=== PATIENT | female | born 1960 | race Caucasian/White ===

== ENCOUNTER 2022-05-18 13:32 | Observation (INO) | payer OTHER ==
--- OUTSIDE RECORDS SUMMARY | 2022-05-18 13:37 | XMS REPORT | Continuity of Care Document ---
:1960 Author Organization [facility] t Address [address] [place] [address] Care Team Providers Name Role Phone Chiqui Pandya DO Primary Care Physician ABIGAIL KUHN Attending Clinician Unavailable JOSE LUIS BRENNER Attending Clinician Unavailable SHARI CONN Attending Clinician Unavailable [id number] Attending Clinician Unavailable [id number] Attending Clinician Unavailable [id number] Attending Clinician Unavailable JOVITA DEMPSEY Attending Clinician Unavailable Ruby [employer]-CShari Attending Clinician CHIQUI PANDYA Attending Clinician Unavailable RACHEL FERRO Attending Clinician Unavailable Rachel Ferro MD Attending Clinician Abigail Kuhn MD Attending Clinician JESSICA ASHTON Attending Clinician Unavailable MICHELLE HORTON Attending Clinician Unavailable [id number] Attending Clinician Unavailable Destini Avendano RD Attending Clinician MODESTO ARDON Attending Clinician Unavailable [id number] Attending Clinician Unavailable Modesto Ardon MD Attending Clinician [facility] Attending Clinician Unavailable Payers Payer Name Policy Type Policy Number Effective Date Expiration Date Stephany noe [facility] 2 [id number] 2019 00:00:00 Problems Condition Condition Condition Status Onset Resolution Last Treating Co mments Source Name Details Category Date Date Treatment Clinician Date DVT of DVT of Disease Active Betsey deep deep 9-15 Seybold femoral femoral 00:00: - vein, vein, 00 Externa right right l Family Family Disease Active Betsey history of history of 01-24 Se ybold melanoma melanoma 00:00: - 00 Externa l Hx of Hx of Disease Active Betsey basal cell basal cell 8 Se ybold carcinoma carcinoma 00:00: - - - 00 Externa Controlled Controlled l Basal cell Basal cell Disease Active Overview : Betsey carcinoma carcinoma 11-09 Formattin S eybold (BCC) of (BCC) of 00:00: g of this - skin of skin of 00 note Externa left lower left lower might be l extremity extremity different including including from the hip hip original. Treated with Excision in office Essential Essential Disease Active 2020-06 Jose Maria y hypertensi hypertensi 2-14 Se ybold on on 00:00: - 00 Externa l Gastroesop Gastroesop Disease Active 2020-06 K elsey hageal hageal 2-14 Seybold reflux reflux 00:00: - disease disease 00 Externa l MOUSTAPHA MOUSTAPHA Disease Active Betsey (obstructi (obstructi 9-17 Se ybold ve sleep ve sleep 00:00: - apnea) apnea) 00 Externa l Allergies, Adverse Reactions, Alerts Allergy Allergy Status Severity Reaction(s) Onset Inactive Treating Comm ents Source Name Type Date Date Clinician Pistachi Propensi Active Swelling Vianey ey o Nut ty to 9-27 Seybold (Diagnos adverse 00:00: - tic) reaction 00 Externa s l Codeine Propensi Active Anaphylaxis 2006-06 Ke lsey ty to 0-24 Seybold adverse 00:00: - reaction 00 Externa s l Social History Social Habit Start Date Stop Date Quantity Comments Source History SDOH Betsey Rodriguez ld - Alcohol Frequency Externa l History SDOH Betsey Rodriguez ld - Alcohol Std Drinks Food And Beverage Director al History SDOH Betsey Rodriguez ld - Alcohol Comment External Alcohol intake 2022-05-172022-05-17 1.14 /d Betsey Rasmussen bold - 00:00:00 00:00:00 External History SDOH 2018-04-29 2018-04-29 4 Betsey Rodriguez ld - Alcohol Binge 00:00:00 00:00:00 External Tobacco use and 2018-02-12 2018-02-12 Smokeless tobacco Ke sweta Doranybold - exposure 00:00:00 00:00:00 non-user External History of tobacco 2011-10-05 Cigarette Smoker Betsey Lima - use 00:00:00 External Sex [birth year] F Betsey shoemaker - 00:00:00 00:00:00 External Smoking Status Start Date Stop Date Source Ex-smoker 2018-02-12 00:00:00 2018-02-12 00:00:00 Betseysami jaydanielle - External Medications Ordered Filled Start Stop Current Ordering Indication Dosage Frequency Signature Comments Components Source Medication Medication Date Date Medication? Clinician (SIG) Name Name Cholecalcif 2021-06 Yes 2000U Take 2,000 Betsey dawna 1-30 units by Seybold (Vitamin 14:19: mouth - D3) 50 MCG 01 daily Externa (1999) l oral Cap Eliquis 5 2021-06 Yes [id number] TAKE 1 Betsey MG oral 1-29 9101 TABLET BY Seybold Tablet 00:00: MOUTH - 00 TWICE A Externa DAY l Atorvastati 2021-06 Yes [id number] 10mg Take 1 Betsey n Calcium 1-25 tablet (10 Seyb old 10 MG oral 00:00: mg total) - Tablet 00 by mouth Externa nightly l Nitrofurant 2021-06 Yes [id number] 100mg Take 1 Betsey oin Monohyd 1-25 capsule Seybo ld Macro 00:00: (100 mg - (Macrobid) 00 total) by Exte rna 100 MG oral mouth 2 l Capsule times daily Fluconazole 2021-06 Yes 150mg Take 150 K elsey 150 MG oral 1-25 mg by Seybold Tablet 00:00: mouth once - 00 FOR 1 DOSE Externa l Cholecalcif 2021-06 Yes 2000U Take 2,000 Betsey dawna 1-22 units by Seybold (Vitamin 08:27: mouth - D3) 50 MCG 13 daily Externa (1999) l oral Cap Ciclopirox 2021-06 Yes [id number] Apply to Betsey Olamine - the toe Seybold 0.77 % 00:00: nails - apply 00 twice a Externa externally day for 12 l Suspension weeks Triamcinolo 2021-06 Yes [id number] Apply to Betsey ne - the right Seybold Acetonide 00:00: ankle - 0.1 % apply 00 twice a Exter na externally day for 14 l Cream days Ciclopirox 2021-06 Yes [id number] Apply to Betsey Olamine - the toe Seybold 0.77 % 00:00: nails - apply 00 twice a Externa externally day for 12 l Suspension weeks Triamcinolo 2021-06 Yes [id number] Apply to Betsey ne - the right Seybold Acetonide 00:00: ankle - 0.1 % apply 00 twice a Exter na externally day for 14 l Cream days CELESTONE 2021-06- No [id number] 6mg Jose Maria sey -15 -15 Seybold 16:00: 16:05 - 00 :00 Externa l Triamcinolo 2021-06- No [id number] 40mg K hakan ne 1-15 11-15 Seybold Acetonide 16:00: 16:00 - (KENALOG) 00 :00 Externa 40 mg/mL l Triamcinolo 2021-06- No [id number] 1mL 40 mg (1 Betsey ne - 11-15 mL), Seybold Acetonide 16:00: 16:00 intramuscu - (KENALOG) 00 :00 lar, ONCE, Exte rna 40 mg/mL On Tue l 05/02/22 at 1000, For 1 dose CELESTONE 2021-06- No [id number] 6mg 6 mg, Ke lsey -15 11-15 intramuscu Seybold 16:00: 16:05 lar, ONCE, - 00 :00 On Tue Externa 05/02/22 l at 1000, For 1 dose Cholecalcif 2021-06 Yes Take 2,000 Betsey dawna 1-15 units by Janie (Vitamin 09:25: mouth - D3) 50 MCG 58 daily Externa (1999) l oral Cap OZEMPIC (2021-06 Yes [id number] 1mg Inject 1 Betsey mg/dose) 4 1-15 mg into Seybol d mg/3 mL SQ 00:00: the skin - Solution 00 once a Externa Pen-Injecto week l r guaiFENesin 2021-06 Yes [id number] 5mL Q.[id number] Take 5 mL Betsey -Codeine 1-15 [id number] by mouth 3 Seybold 100-10 00:00: 3D times - MG/5ML oral 00 daily as Exte rna Solution needed for l cough OZEMPIC (2021-06 Yes [id number] 1mg Inject 1 Betsey mg/dose) 4 1-15 mg into Seybol d mg/3 mL SQ 00:00: the skin - Solution 00 once a Externa Pen-Injecto week l r guaiFENesin 2021-06 Yes [id number] 5mL Q.[id number] Take 5 mL Betsey -Codeine 1-15 [id number] by mouth 3 Seybold 100-10 00:00: 3D times - MG/5ML oral 00 daily as Exte rna Solution needed for l cough OZEMPIC (2021-06 Yes [id number] 1mg Inject 1 Betsey mg/dose) 4 1-15 mg into Seybol d mg/3 mL SQ 00:00: the skin - Solution 00 once a Externa Pen-Injecto week l r guaiFENesin 2021-06 Yes [id number] 5mL Q.[id number] Take 5 mL Betsey -Codeine 1-15 [id number] by mouth 3 Seybold 100-10 00:00: 3D times - MG/5ML oral 00 daily as Exte rna Solution needed for l cough Cholecalcif 2021-06 Yes Take 2,000 Betsey dawna 0-28 units by Seybold (Vitamin 12:53: mouth - D3) 50 MCG 58 daily Externa (1999) l oral Cap methylPREDN 2021-06 Yes [id number] 1{vaughn} Take 1 vaughn Betsey ISolone 4 0-28 by mouth Seybol d MG oral 00:00: See Admin - Tablet 00 Instructio Externa Therapy ns Use as l Pack directed Benzonatate 2021-06 Yes [id number] 100mg Q.[id number] Take 1 Betsey (Tessalon 0-28 [id number] capsule S eybold Perles) 100 00:00: 3D (100 mg - MG oral 00 total) by Externa Capsule mouth 3 l times daily as needed for cough Pseudoeph-B 2021-06 Yes [id number] 10mL Q.25D Take 10 mL Betsey romphen-DM 0-28 by mouth 4 Sey bold (Bromfed 00:00: times - DM) daily as Exte rna MG/5ML oral needed l Syrup Benzonatate 2021-06 Yes [id number] 100mg Q.[id number] Take 1 Betsey (Tessalon 0-28 [id number] capsule S eybold Perles) 100 00:00: 3D (100 mg - MG oral 00 total) by Externa Capsule mouth 3 l times daily as needed for cough Pseudoeph-B 2021-06 Yes [id number] 10mL Q.25D Take 10 mL Betsey romphen-DM 0-28 by mouth 4 Sey bold (Bromfed 00:00: times - DM) daily as Exte rna MG/5ML oral needed l Syrup Benzonatate 2021-06 Yes [id number] 100mg Q.[id number] Take 1 Betsey (Tessalon 0-28 [id number] capsule S eybold Perles) 100 00:00: 3D (100 mg - MG oral 00 total) by Externa Capsule mouth 3 l times daily as needed for cough Pseudoeph-B 2021-06 Yes [id number] 10mL Q.25D Take 10 mL Betsey romphen-DM 0-28 by mouth 4 Sey bold (Bromfed 00:00: times - DM) daily as Exte rna MG/5ML oral needed l Syrup Pseudoeph-B 2021-06 Yes [id number] 10mL Q.25D Take 10 mL Betsey romphen-DM 0-28 by mouth 4 Sey bold (Bromfed 00:00: times - DM) daily as Exte rna MG/5ML oral needed l Syrup Benzonatate 2021-06 [id number] 100mg Q.[id number] Take 1 Betsey (Tessalon 0-28 11-30 [id number] capsule Seybold Perles) 100 00:00: 00:00 3D (100 mg - MG oral 00 :00 total) by Externa Capsule mouth 3 l times daily as needed for cough methylPREDN 2021-06- No [id number] 1{vaughn} Take 1 vaughn Betsey ISolone 4 0-28 11-15 by mouth Seybo ld MG oral 00:00: 00:00 See Admin - Tablet 00 :00 Instructio Externa Therapy ns Use as l Pack directed Azithromyci 2021-06- Yes [id number] Take 2 Betsey n 250 MG 0-28 11-03 tablets by Seyb old oral Tablet 00:00: 04:59 mouth on - 00 :00 day 1 then Externa 1 tablet l by mouth daily for 4 days thereafter . OZEMPIC 2021-06 Yes [id number] .5mg INJECT 0.5 Betsey (0.25 or 0-11 MG INTO Seybold 0.5 00:00: THE SKIN - mg/dose) 2 00 ONCE A Externa mg/1.5 mL WEEK l SQ Solution Pen-Injecto r OZEMPIC 2021-06- No [id number] .5mg INJECT 0.5 Betsey (0.25 or 0-11 11-15 MG INTO Seybold 0.5 00:00: 00:00 THE SKIN - mg/dose) 2 00 :00 ONCE A Externa mg/1.5 mL WEEK l SQ Solution Pen-Injecto r Furosemide 2021-06 Yes [id number] 40mg TAKE 1 Betsey 40 MG oral 0-10 TABLET (40 Sey bold Tablet 00:00: MG TOTAL) - 00 BY MOUTH Externa IN THE l MORNING AND 1 TABLET (40 MG TOTAL) IN THE EVENING. Montelukast 2021-06 Yes [id number] TAKE 1 Betesy (SINGULAIR) 0-10 TABLET BY Sey bold 10 MG oral 00:00: MOUTH - Tablet 00 EVERY DAY Externa tablet AT NIGHT l Furosemide 2021-06 Yes [id number] 40mg TAKE 1 Betsey 40 MG oral 0-10 TABLET (40 Sey bold Tablet 00:00: MG TOTAL) - 00 BY MOUTH Externa IN THE l MORNING AND 1 TABLET (40 MG TOTAL) IN THE EVENING. Montelukast 2021-06 Yes [id number] TAKE 1 Betsey (SINGULAIR) 0-10 TABLET BY Sey bold 10 MG oral 00:00: MOUTH - Tablet 00 EVERY DAY Externa tablet AT NIGHT l Furosemide 2021-06 Yes [id number] 40mg TAKE 1 Betsey 40 MG oral 0-10 TABLET (40 Sey bold Tablet 00:00: MG TOTAL) - 00 BY MOUTH Externa IN THE l MORNING AND 1 TABLET (40 MG TOTAL) IN THE EVENING. Montelukast 2021-06 Yes [id number] TAKE 1 Betsey (SINGULAIR) 0-10 TABLET BY Sey bold 10 MG oral 00:00: MOUTH - Tablet 00 EVERY DAY Externa tablet AT NIGHT l Furosemide 2021-06 Yes [id number] 40mg TAKE 1 Betsey 40 MG oral 0-10 TABLET (40 Sey bold Tablet 00:00: MG TOTAL) - 00 BY MOUTH Externa IN THE l MORNING AND 1 TABLET (40 MG TOTAL) IN THE EVENING. Montelukast 2021-06 Yes [id number] TAKE 1 Betsey (SINGULAIR) 0-10 TABLET BY Sey bold 10 MG oral 00:00: MOUTH - Tablet 00 EVERY DAY Externa tablet AT NIGHT l Cholecalcif Yes 1999U Take 2,000 Betsey dawna 9-27 units by Seybold (Vitamin 11:02: mouth - D3) 50 MCG 22 daily Externa (1999) l oral Cap Cyclobenzap Yes [id number] 5mg Q.[id number] Take 1 Betsey rine HCl 5 9-27 [id number] tablet (5 Seybold MG oral 00:00: 3D mg total) - Tablet 00 by mouth 3 Externa times l daily as needed for muscle spasms Cyclobenzap Yes [id number] 5mg Q.[id number] Take 1 Betsey rine HCl 5 9-27 [id number] tablet (5 Seybold MG oral 00:00: 3D mg total) - Tablet 00 by mouth 3 Externa times l daily as needed for muscle spasms Cyclobenzap Yes [id number] 5mg Q.[id number] Take 1 Betsey rine HCl 5 9-27 [id number] tablet (5 Seybold MG oral 00:00: 3D mg total) - Tablet 00 by mouth 3 Externa times l daily as needed for muscle spasms Cyclobenzap Yes [id number] 5mg Q.[id number] Take 1 Betsey rine HCl 5 03-14 [id number] tablet (5 Seybold MG oral 00:00: 3D mg total) - Tablet 00 by mouth 3 Externa times l daily as needed for muscle spasms Cyclobenzap Yes [id number] 5mg Q.[id number] Take 1 Betsey rine HCl 5 03-14 [id number] tablet (5 Seybold MG oral 00:00: 3D mg total) - Tablet 00 by mouth 3 Externa times l daily as needed for muscle spasms Metformin Yes [id number] TAKE 1 K elsey HCl 500 MG 9-26 TABLET BY Seyb old oral Tablet 00:00: MOUTH IN - 00 THE Externa MORNING l AND 1 TABLET IN THE EVENING. TAKE WITH MEALS. Metformin Yes [id number] TAKE 1 K elsey HCl 500 MG 9-26 TABLET BY Seyb old oral Tablet 00:00: MOUTH IN - 00 THE Externa MORNING l AND 1 TABLET IN THE EVENING. TAKE WITH MEALS. Metformin Yes [id number] TAKE 1 K elsey HCl 500 MG 9-26 TABLET BY Seyb old oral Tablet 00:00: MOUTH IN - 00 THE Externa MORNING l AND 1 TABLET IN THE EVENING. TAKE WITH MEALS. Metformin Yes [id number] TAKE 1 K elsey HCl 500 MG 9-26 TABLET BY Seyb old oral Tablet 00:00: MOUTH IN - 00 THE Externa MORNING l AND 1 TABLET IN THE EVENING. TAKE WITH MEALS. Metformin Yes [id number] TAKE 1 K elsey HCl 500 MG 9-26 TABLET BY Seyb old oral Tablet 00:00: MOUTH IN - 00 THE Externa MORNING l AND 1 TABLET IN THE EVENING. TAKE WITH MEALS. OZEMPIC Yes [id number] .25mg Inject Ke lsey (0.25 or 9-09 0.25 mg Seybold 0.5 00:00: into the - mg/dose) 2 00 skin once Exte rna mg/1.5 mL a week l SQ Solution Pen-Injecto r Apixaban 5 Yes [id number] 5mg Take 1 Betsey MG oral 8-26 9101 tablet (5 Seybold Tablet 00:00: mg total) - 00 by mouth 2 Externa times l daily Apixaban 5 2021-0 Yes [id number] 5mg Take 1 Betsey MG oral 8-26 9101 tablet (5 Seybold Tablet 00:00: mg total) - 00 by mouth 2 Externa times l daily Apixaban 5 2021-0 Yes [id number] 5mg Take 1 Betsey MG oral 8-26 9101 tablet (5 Seybold Tablet 00:00: mg total) - 00 by mouth 2 Externa times l daily Apixaban 5 2021-0 Yes [id number] 5mg Take 1 Betsey MG oral 8-26 9101 tablet (5 Seybold Tablet 00:00: mg total) - 00 by mouth 2 Externa times l daily Ketoconazol 2021-0 Yes [id number] Apply K elsey e 2 % apply - under Seybold externally 00:00: breast - Cream 00 twice a Externa day l Miconazole 2021-0 Yes [id number] Apply to Betsey Nitrate - under Seybold (Zeasorb-AF 00:00: breast - ) 2 % apply 00 daily Externa externally l Powder Ketoconazol 2021-0 Yes [id number] Apply K elsey e 2 % apply - under Seybold externally 00:00: breast - Cream 00 twice a Externa day l Miconazole 2021-0 Yes [id number] Apply to Betsey Nitrate - under Seybold (Zeasorb-AF 00:00: breast - ) 2 % apply 00 daily Externa externally l Powder Ketoconazol 2021-0 Yes [id number] Apply K elsey e 2 % apply - under Seybold externally 00:00: breast - Cream 00 twice a Externa day l Miconazole 2-0 Yes [id number] Apply to Betsey Nitrate - under Seybold (Zeasorb-AF 00:00: breast - ) 2 % apply 00 daily Externa externally l Powder Ketoconazol 2021-0 Yes [id number] Apply K elsey e 2 % apply - under Seybold externally 00:00: breast - Cream 00 twice a Externa day l Miconazole 2021-0 Yes [id number] Apply to Betsey Nitrate 01-24 under Seybold (Zeasorb-AF 00:00: breast - ) 2 % apply 00 daily Externa externally l Powder Ketoconazol Yes [id number] Apply K elsey e 2 % apply 01-24 under Seybold externally 00:00: breast - Cream 00 twice a Externa day l Miconazole Yes [id number] Apply to Betsey Nitrate 01-24 under Seybold (Zeasorb-AF 00:00: breast - ) 2 % apply 00 daily Externa externally l Powder Furosemide Yes [id number] 40mg TAKE 1 Betsey 40 MG oral 7-12 TABLET (40 Sey bold Tablet 00:00: MG TOTAL) - 00 BY MOUTH Externa IN THE l MORNING AND 1 TABLET (40 MG TOTAL) IN THE EVENING. Montelukast 0 Yes [id number] TAKE 1 Betsey (SINGULAIR) 7-12 TABLET BY Sey bold 10 MG oral 00:00: MOUTH - Tablet 00 EVERY DAY Externa tablet AT NIGHT l Lisinopril 2021-0 Yes [id number] TAKE 1 K elsey 40 MG oral 6-25 TABLET BY Seyb old Tablet 00:00: MOUTH - 00 EVERY DAY Externa l Lisinopril 2021-0 Yes [id number] TAKE 1 K elsey 40 MG oral 6-25 TABLET BY Seyb old Tablet 00:00: MOUTH - 00 EVERY DAY Externa l Lisinopril 0 Yes [id number] TAKE 1 K elsey 40 MG oral 6-25 TABLET BY Seyb old Tablet 00:00: MOUTH - 00 EVERY DAY Externa l Lisinopril 2021-0 Yes [id number] TAKE 1 K elsey 40 MG oral 6-25 TABLET BY Seyb old Tablet 00:00: MOUTH - 00 EVERY DAY Externa l Lisinopril 2021-0 Yes [id number] TAKE 1 K elsey 40 MG oral 6-25 TABLET BY Seyb old Tablet 00:00: MOUTH - 00 EVERY DAY Externa l FLUTICASONE 2021-0 Yes [id number] INSTILL 2 Betsey PROPIONATE, 6-19 SPRAYS TO Sey bold NASAL, 50 00:00: EACH - MCG/ACT 00 NOSTRIL Externa nasal DAILY l Suspension FLUTICASONE 0 Yes [id number] INSTILL 2 Betsey PROPIONATE, 6-19 SPRAYS TO Sami bold NASAL, 50 00:00: EACH - MCG/ACT 00 NOSTRIL Externa nasal DAILY l Suspension FLUTICASONE 2021-0 Yes [id number] INSTILL 2 Betsey PROPIONATE, 6-19 SPRAYS TO y bold NASAL, 50 00:00: EACH - MCG/ACT 00 NOSTRIL Externa nasal DAILY l Suspension FLUTICASONE 2021-0 Yes [id number] INSTILL 2 Betsey PROPIONATE, 6-19 SPRAYS TO Sami bold NASAL, 50 00:00: EACH - MCG/ACT 00 NOSTRIL Externa nasal DAILY l Suspension FLUTICASONE 2021-0 Yes [id number] INSTILL 2 Betsey PROPIONATE, 6-19 SPRAYS TO y bold NASAL, 50 00:00: EACH - MCG/ACT 00 NOSTRIL Externa nasal DAILY l Suspension Cholecalcif 2021-0 Yes [id number] Take 2,000 Betsey dawna 5-25 units by Janie (Vitamin 11:01: mouth D3) 50 MCG 50 daily (1999) oral Cap Triamcinolo 0 Yes [id number] Apply to Betsey ne 5-25 4107 right Seybold Acetonide 00:00: lower leg 0.1 % apply 00 BID for 2 externally weeks at a Cream time; not for use on face, groin or armpits Mupirocin 2021-0 Yes [id number] Apply Ke lsey (BACTROBAN) 5-25 twice a Seybo ld 2 % apply 00:00: day to externally 00 affected Ointment areas Doxycycline 2021-0 Yes [id number] Take 1 tab Betsey Monohydrate 5-25 twice a Seybo ld 100 MG oral 00:00: day with Capsule 00 food and water. Not with dairy Triamcinolo 2021-0 Yes [id number] Apply to Betsey ne 5-25 4107 right Seybold Acetonide 00:00: lower leg - 0.1 % apply 00 BID for 2 Ext alessandro externally weeks at a l Cream time; not for use on face, groin or armpits Mupirocin 2021-0 Yes [id number] Apply Ke lsey (BACTROBAN) 5-25 twice a Seybo ld 2 % apply 00:00: day to - externally 00 affected Exter na Ointment areas l Triamcinolo 2022-0 Yes [id number] Apply to Betsey ne 11-09 4107 right Seybold Acetonide 00:00: lower leg - 0.1 % apply 00 BID for 2 Ext alessandro externally weeks at a l Cream time; not for use on face, groin or armpits Mupirocin 2022-0 Yes [id number] Apply Ke lsey (BACTROBAN) 5-25 twice a Seybo ld 2 % apply 00:00: day to - externally 00 affected Exter na Ointment areas l Triamcinolo 2022-0 Yes [id number] Apply to Betsey ne 11-09 410 right Seybold Acetonide 00:00: lower leg - 0.1 % apply 00 BID for 2 Ext alessandro externally weeks at a l Cream time; not for use on face, groin or armpits Mupirocin 2022-0 Yes [id number] Apply Ke lsey (BACTROBAN) 5-25 twice a Seybo ld 2 % apply 00:00: day to - externally 00 affected Exter na Ointment areas l Triamcinolo 202-0 Yes [id number] Apply to Betsey ne 11-09 4107 right Seybold Acetonide 00:00: lower leg - 0.1 % apply 00 BID for 2 Ext alessandro externally weeks at a l Cream time; not for use on face, groin or armpits Mupirocin 2022-0 Yes [id number] Apply Ke lsey (BACTROBAN) 5-25 twice a Seybo ld 2 % apply 00:00: day to - externally 00 affected Exter na Ointment areas l Triamcinolo 2022-0 Yes [id number] Apply to Betsey ne 11-09 4107 right Seybold Acetonide 00:00: lower leg - 0.1 % apply 00 BID for 2 Ext alessandro externally weeks at a l Cream time; not for use on face, groin or armpits Mupirocin 2022-0 Yes [id number] Apply Ke lsey (BACTROBAN) 5-25 twice a Seybo ld 2 % apply 00:00: day to - externally 00 affected Exter na Ointment areas l FLUTICASONE 2022-0 Yes [id number] INSTILL 2 Betsey PROPIONATE, 5-13 SPRAYS TO Sey bold NASAL, 50 00:00: EACH MCG/ACT 00 NOSTRIL nasal DAILY Suspension Cholecalcif 2021-0 Yes [id number] Take 2,000 Betsey dawna 5-09 units by Seybold (Vitamin 08:47: mouth D3) 50 MCG 46 daily (1999) oral Cap FLUTICASONE 2021-0 Yes [id number] INSTILL 2 Betsey PROPIONATE, 4-18 SPRAYS TO Sey bold NASAL, 50 00:00: EACH MCG/ACT 00 NOSTRIL nasal DAILY - Suspension NOT COVER Cholecalcif 0 Yes [id number] Take 2,000 Betsey dawna 4-14 units by Seybold (Vitamin 13:48: mouth D3) 50 MCG 32 daily (1999) oral Cap Multiple 0 2021- No Take by Quintin chowdary Vitamins-Mi 4-14 04-14 mouth Seybol d nerals 13:48: 00:00 (CENTRUM 32 :00 SILVER 50+WOMEN OR) Furosemide Yes [id number] 40mg Take 1 Betsey 40 MG oral 4-14 tablet (40 Sey bold Tablet 00:00: mg total) 00 by mouth in the morning and 1 tablet (40 mg total) in the evening. Montelukast Yes [id number] 10mg Take 1 Betsey (SINGULAIR) 4-14 tablet (10 Se ybold 10 MG oral 00:00: mg total) Tablet 00 by mouth tablet nightly Furosemide 0 Yes [id number] 40mg Take 1 Betsey 40 MG oral 4-14 tablet (40 Sey bold Tablet 00:00: mg total) 00 by mouth in the morning and 1 tablet (40 mg total) in the evening. Montelukast 0 Yes [id number] 10mg Take 1 Betsey (SINGULAIR) 4-14 tablet (10 Se ybold 10 MG oral 00:00: mg total) Tablet 00 by mouth tablet nightly Furosemide 0 Yes [id number] 40mg Take 1 Betsey 40 MG oral 4-14 tablet (40 Sey bold Tablet 00:00: mg total) 00 by mouth in the morning and 1 tablet (40 mg total) in the evening. Montelukast 2022-0 Yes [id number] 10mg Take 1 Betsey (SINGULAIR) 4-14 tablet (10 Se ybold 10 MG oral 00:00: mg total) Tablet 00 by mouth tablet nightly Montelukast 0 Yes [id number] TAKE 1 Betsey (SINGULAIR) 3-30 TABLET BY Sey bold 10 MG oral 00:00: MOUTH Tablet 00 EVERY DAY tablet AT NIGHT Montelukast 2021-0 2021- No [id number] TAKE 1 Betsey (SINGULAIR) 3-30 04-14 TABLET BY Se ybold 10 MG oral 00:00: 00:00 MOUTH Tablet 00 :00 EVERY DAY tablet AT NIGHT FLUTICASONE 0 Yes [id number] INSTILL 2 Betsey PROPIONATE, 3-20 SPRAYS TO Sey bold NASAL, 50 00:00: EACH MCG/ACT 00 NOSTRIL nasal DAILY Suspension FLUTICASONE 0 Yes [id number] INSTILL 2 Betsey PROPIONATE, 3-20 SPRAYS TO Sey bold NASAL, 50 00:00: EACH MCG/ACT 00 NOSTRIL nasal DAILY Suspension Lisinopril 0 Yes [id number] TAKE 1 K elsey 40 MG oral 3-14 TABLET BY Seyb old Tablet 00:00: MOUTH 00 EVERY DAY Furosemide 2021-0 Yes [id number] TAKE 1 Betsey 40 MG oral 3-14 TABLET BY Seyb old Tablet 00:00: MOUTH 00 TWICE A DAY Lisinopril 2021-0 Yes [id number] TAKE 1 K elsey 40 MG oral 3-14 TABLET BY Seyb old Tablet 00:00: MOUTH 00 EVERY DAY Lisinopril 2021-0 Yes [id number] TAKE 1 K elsey 40 MG oral 3-14 TABLET BY Seyb old Tablet 00:00: MOUTH 00 EVERY DAY Lisinopril 2021-0 Yes [id number] TAKE 1 K elsey 40 MG oral 3-14 TABLET BY Seyb old Tablet 00:00: MOUTH 00 EVERY DAY Furosemide 2021-0 2021- No [id number] TAKE 1 Betsey 40 MG oral 3-14 04-14 TABLET BY Sey bold Tablet 00:00: 00:00 MOUTH 00 :00 TWICE A DAY Pantoprazol 1 Yes [id number] TAKE 1 Betsey e Sodium 20 2-21 TABLET BY Sey bold MG oral 00:00: MOUTH Tablet 00 EVERY DAY Delayed Response Pantoprazol 2020-06 Yes [id number] TAKE 1 Betsey e Sodium 20 2-21 TABLET BY Sey bold MG oral 00:00: MOUTH Tablet 00 EVERY DAY Delayed Response Pantoprazol 2020-06 Yes [id number] TAKE 1 Betsey e Sodium 20 2-21 TABLET BY Sey bold MG oral 00:00: MOUTH Tablet 00 EVERY DAY Delayed Response Pantoprazol 2020-06 Yes [id number] TAKE 1 Betsey e Sodium 20 2-21 TABLET BY Sey bold MG oral 00:00: MOUTH Tablet 00 EVERY DAY Delayed Response Pantoprazol 2020-06 Yes [id number] TAKE 1 Betsey e Sodium 20 2-21 TABLET BY Sey bold MG oral 00:00: MOUTH - Tablet 00 EVERY DAY Externa Delayed l Response Pantoprazol 2020-06 Yes [id number] TAKE 1 Betsey e Sodium 20 2-21 TABLET BY Sey bold MG oral 00:00: MOUTH - Tablet 00 EVERY DAY Externa Delayed l Response Pantoprazol 2020-06 Yes [id number] TAKE 1 Betsey e Sodium 20 2-21 TABLET BY Sey bold MG oral 00:00: MOUTH - Tablet 00 EVERY DAY Externa Delayed l Response Pantoprazol 2020-06 Yes [id number] TAKE 1 Betsey e Sodium 20 2-21 TABLET BY Sey bold MG oral 00:00: MOUTH - Tablet 00 EVERY DAY Externa Delayed l Response Pantoprazol 2020-06 Yes [id number] TAKE 1 Betsey e Sodium 20 2-21 TABLET BY Sey bold MG oral 00:00: MOUTH - Tablet 00 EVERY DAY Externa Delayed l Response Multiple 2020-06 Yes Take by Betsey Vitamins-Mi 2-14 mouth Seybold nerals 07:54: (CENTRUM 19 SILVER 50+WOMEN OR) Cholecalcif 2020-06 Yes 2000U Take 2,000 Betsey dawna 2-14 units by Seybold (Vitamin 07:54: mouth D3) 50 MCG 19 daily (1999) oral Cap Multiple 2020-06 Yes Take by Betsey Vitamins-Mi 2-14 mouth Seybold nerals 07:54: (CENTRUM 19 SILVER 50+WOMEN OR) Cholecalcif 2020-06 Yes 2000U Take 2,000 Betsey dawna 2-14 units by Seybold (Vitamin 07:54: mouth D3) 50 MCG 19 daily (1999) oral Cap FLUTICASONE 2020-06 Yes [id number] INSTILL 2 Betsey PROPIONATE, 2-14 SPRAYS TO ricarda bold NASAL, 50 00:00: EACH MCG/ACT 00 NOSTRIL nasal DAILY Suspension Montelukast 2020-06 Yes [id number] 10mg Take 1 Betsey (SINGULAIR) 2-14 tablet (10 Se ybold 10 MG oral 00:00: mg total) Tablet 00 by mouth tablet nightly Multiple 2020-06 Yes Take by Betsey Vitamins-Mi 1-29 mouth Seybold nerals 07:50: (CENTRUM 47 SILVER 50+WOMEN OR) Cholecalcif 2020-06 Yes Take 2,000 Betsey dawna 1-29 units by Seybold (Vitamin 07:50: mouth D3) 50 MCG 47 daily (1999) oral Cap Montelukast 2020-06 Yes [id number] TAKE 1 Betsey (SINGULAIR) 1-23 TABLET BY Sey bold 10 MG oral 00:00: MOUTH Tablet 00 EVERY DAY tablet AT NIGHT Furosemide 2020-06 Yes [id number] TAKE 1 Betsey 40 MG oral 1-23 TABLET BY Seyb old Tablet 00:00: MOUTH 00 TWICE A DAY Furosemide 2020-06 Yes [id number] TAKE 1 Betsey 40 MG oral 1-23 TABLET BY Seyb old Tablet 00:00: MOUTH 00 TWICE A DAY Montelukast 2020-06- No [id number] TAKE 1 Betsey (SINGULAIR) 1-23 12-14 TABLET BY Se ybold 10 MG oral 00:00: 00:00 MOUTH Tablet 00 :00 EVERY DAY tablet AT NIGHT Lisinopril 2020-06 Yes [id number] TAKE 1 K elsey 40 MG oral 1-18 TABLET BY Seyb old Tablet 00:00: MOUTH 00 EVERY DAY Lisinopril 2020-06 Yes [id number] TAKE 1 K elsey 40 MG oral 1-18 TABLET BY Seyb old Tablet 00:00: MOUTH 00 EVERY DAY Ibuprofen 2020-2020- No [id number] 600mg Q8H Take 1 Betsey 600 MG oral 3-23 11-29 tablet Seybo ld Tablet 00:00: 00:00 (600 mg 00 :00 total) by mouth every 8 hours as needed for pain Pantoprazol Yes [id number] 20mg Take 1 Betsey e Sodium 20 1-04 tablet (20 Se ybold MG oral 00:00: mg total) Tablet 00 by mouth Delayed daily Response Pantoprazol Yes [id number] 20mg Take 1 Betsey e Sodium 20 1-04 tablet (20 Se ybold MG oral 00:00: mg total) Tablet 00 by mouth Delayed daily Response Methocarbam 2019-06- No [id number] 750mg TAKE 1 Betsey ol 750 MG 214 05-16 TABLET Seybold oral Tab 00:00: 00:00 (750 MG 00 :00 TOTAL) BY MOUTH 4 TIMES DAILY FLUTICASONE 2019-06 Yes [id number] INSTILL 2 Betsey PROPIONATE, 0-20 SPRAYS TO Sey bold NASAL, 50 00:00: EACH MCG/ACT 00 NOSTRIL nasal DAILY Suspension FLUTICASONE 2019-06- No [id number] INSTILL 2 Betsey PROPIONATE, 0-20 12-14 SPRAYS TO Se ybold NASAL, 50 00:00: 00:00 EACH MCG/ACT 00 :00 NOSTRIL nasal DAILY Suspension Azelastine 2020- No [id number] 1{spray Use 1 Betsey HCl 0.1 % 12-11 } spray in Seybo ld nasal 00:00: 00:00 each Solution 00 :00 nostril 2 times daily Immunizations Ordered Immunization Filled Immunization Date Status Commen Source Name Name Influenza, 2022-03-10 Completed Betsey Lima Injectable, Mdck, 00:00:00 - Exter nal Preservative Free, Quadrivalt Influenza, 2022-03-10 Completed Betsey Lima Injectable, Mdck, 00:00:00 - Exter nal Preservative Free, Quadrivalt Influenza, 2022-03-10 Completed Betsey Mayoold Injectable, Mdck, 00:00:00 - Exter nal Preservative Free, Quadrivalt Influenza, 2022-03-10 Completed Betsey Lima Injectable, Mdck, 00:00:00 - Exter nal Preservative Free, Quadrivalt Influenza, 2022-03-10 Completed Betsey Lima Injectable, Mdck, 00:00:00 - Exter nal Preservative Free, Quadrivalt COMIRNATY TS COMIRNATY TS 2021-10-22 Completed 00:00:00 COVID-19 VACCINE 2021-03-24 Completed Betsey S eybold PFIZER 12+ (Qiu 00:00:00 - Food And Beverage Director al cap) Covid-19 Vaccine 2021-03-24 Completed Betsey S eybold (Pfizer), Mrna-lnp, 00:00:00 - Ext ernal Serge Protein, Pf, 30mcg/0.3ml,IM COVID-19 VACCINE 2021-03-24 Completed Betsey S eybold PFIZER 12+ (Qiu 00:00:00 - Food And Beverage Director al cap) Covid-19 Vaccine 2021-03-24 Completed Betsey S eybold (Pfizer), Mrna-lnp, 00:00:00 - Ext ernal Serge Protein, Pf, 30mcg/0.3ml,IM COVID-19 VACCINE 2021-03-24 Completed Betsey S eybold PFIZER 12+ (Qiu 00:00:00 - Food And Beverage Director al cap) Covid-19 Vaccine 2021-03-24 Completed Betsey S eybold (Pfizer), Mrna-lnp, 00:00:00 - Ext ernal Serge Protein, Pf, 30mcg/0.3ml,IM COVID-19 VACCINE 2021-03-24 Completed Betsey S eybold PFIZER 12+ (Qiu 00:00:00 - Food And Beverage Director al cap) Covid-19 Vaccine 2021-03-24 Completed Betsey S eybold (Pfizer), Mrna-lnp, 00:00:00 - Ext ernal Serge Protein, Pf, 30mcg/0.3ml,IM COVID-19 VACCINE 2021-03-24 Completed Betsey S eybold PFIZER 12+ (Qiu 00:00:00 - Food And Beverage Director al cap) Covid-19 Vaccine 2021-03-24 Completed Betsey S eybold (Pfizer), Mrna-lnp, 00:00:00 - Ext ernal Serge Protein, Pf, 30mcg/0.3ml,IM Pfizer COVID-19 Pfizer COVID-19 2021-03-24 Completed Vaccine Vaccine 00:00:00 Influenza Virus 2021-03-12 Completed Betsey Se ybold Vaccine, age 6 00:00:00 months and up Influenza Virus 2021-03-12 Completed Betsey Se ybold Vaccine, No Preserv, 00:00:00 age 6 months and up Influenza Virus 2021-03-12 Completed Betsey Se ybold Vaccine, age 6 00:00:00 months and up Influenza Virus 2021-03-12 Completed Betsey Se ybold Vaccine, No Preserv, 00:00:00 age 6 months and up Influenza Virus 2021-03-12 Completed Betsey Se ybold Vaccine, age 6 00:00:00 months and up Influenza Virus 2021-03-12 Completed Betsey Se ybold Vaccine, No Preserv, 00:00:00 age 6 months and up Influenza Virus 2021-03-12 Completed Betsey Se ybold Vaccine, age 6 00:00:00 months and up Influenza Virus 2021-03-12 Completed Betsey Se ybold Vaccine, No Preserv, 00:00:00 age 6 months and up Influenza Virus 2021-03-12 Completed Betsey Se ybold Vaccine, age 6 00:00:00 - External months and up Influenza Virus 2021-03-12 Completed Betsey Se ybold Vaccine, No Preserv, 00:00:00 - Ex ternal age 6 months and up Influenza Virus 2021-03-12 Completed Betsey Se ybold Vaccine, age 6 00:00:00 - External months and up Influenza Virus 2021-03-12 Completed Betsey Se ybold Vaccine, No Preserv, 00:00:00 - Ex ternal age 6 months and up Influenza Virus 2021-03-12 Completed Betsey Se ybold Vaccine, age 6 00:00:00 - External months and up Influenza Virus 2021-03-12 Completed Betsey Se ybold Vaccine, No Preserv, 00:00:00 - Ex ternal age 6 months and up Influenza Virus 2021-03-12 Completed Betsey Se ybold Vaccine, age 6 00:00:00 - External months and up Influenza Virus 2021-03-12 Completed Betsey Se ybold Vaccine, No Preserv, 00:00:00 - Ex ternal age 6 months and up Influenza Virus 2021-03-12 Completed Betsey Se ybold Vaccine, age 6 00:00:00 months and up Influenza Virus 2021-03-12 Completed Betsey Se ybold Vaccine, No Preserv, 00:00:00 age 6 months and up Influenza Virus 2021-03-12 Completed Betsey Se ybold Vaccine, age 6 00:00:00 - External months and up Influenza Virus 2021-03-12 Completed Betsey Se ybold Vaccine, No Preserv, 00:00:00 - Ex ternal age 6 months and up Influenza Virus 2021-03-12 Completed Betsey Se ybold Vaccine, age 6 00:00:00 months and up Influenza Virus 2021-03-12 Completed Betsey Se ybold Vaccine, No Preserv, 00:00:00 age 6 months and up Covid-19 Vaccine 2020-09-20 Completed Betsey S eybold ([employer]), Mrna-lnp, 00:00:00 Serge Protein, Pf, 30mcg/0.3ml,IM Covid-19 Vaccine 2020-09-20 Completed Betsey S eybold (Pfizer), Mrna-lnp, 00:00:00 Serge Protein, Pf, 30mcg/0.3ml,IM Covid-19 Vaccine 2020-09-20 Completed Betsey S eybold (Pfizer), Mrna-lnp, 00:00:00 Serge Protein, Pf, 30mcg/0.3ml,IM Covid-19 Vaccine 2020-09-20 Completed Betsey S eybold ([employer]), Mrna-lnp, 00:00:00 Serge Protein, Pf, 30mcg/0.3ml,IM Covid-19 Vaccine 2020-09-20 Completed Betsey S eybold (Pfizer), Mrna-lnp, 00:00:00 - Ext ernal Serge Protein, Pf, 30mcg/0.3ml,IM COVID-19 VACCINE 2020-09-20 Completed Betsey S eybold PFIZER 12+ (Qiu 00:00:00 - Food And Beverage Director al cap) Covid-19 Vaccine 2020-09-20 Completed Betsey S eybold (Pfizer), Mrna-lnp, 00:00:00 - Ext ernal Serge Protein, Pf, 30mcg/0.3ml,IM COVID-19 VACCINE 2020-09-20 Completed Betsey S eybold PFIZER 12+ (Qiu 00:00:00 - Food And Beverage Director al cap) Covid-19 Vaccine 2020-09-20 Completed Betsey S eybold (Pfizer), Mrna-lnp, 00:00:00 - Ext ernal Serge Protein, Pf, 30mcg/0.3ml,IM COVID-19 VACCINE 2020-09-20 Completed Betsey S eybold PFIZER 12+ (Qiu 00:00:00 - Food And Beverage Director al cap) Covid-19 Vaccine 2020-09-20 Completed Betsey S eybold (Pfizer), Mrna-lnp, 00:00:00 - Ext ernal Serge Protein, Pf, 30mcg/0.3ml,IM COVID-19 VACCINE 2020-09-20 Completed Betsey S eybold PFIZER 12+ (Qiu 00:00:00 - Food And Beverage Director al cap) Covid-19 Vaccine 2020-09-20 Completed Betsey S eybold ([employer]), Mrna-lnp, 00:00:00 Serge Protein, Pf, 30mcg/0.3ml,IM Covid-19 Vaccine 2020-09-20 Completed Betsey S eybold (Pfizer), Mrna-lnp, 00:00:00 - Ext ernal Serge Protein, Pf, 30mcg/0.3ml,IM COVID-19 VACCINE 2020-09-20 Completed Betsey S eybold PFIZER 12+ (Qiu 00:00:00 - Food And Beverage Director al cap) Covid-19 Vaccine 2020-09-20 Completed Betsey S eybold ([employer]), Mrna-lnp, 00:00:00 Serge Protein, Pf, 30mcg/0.3ml,IM Pfizer COVID-19 Pfizer COVID-19 2020-09-20 Completed Vaccine Vaccine 00:00:00 Covid-19 Vaccine 2020-08-30 Completed Betsey S eybold (Pfizer), Mrna-lnp, 00:00:00 Serge Protein, Pf, 30mcg/0.3ml,IM Covid-19 Vaccine 2020-08-30 Completed Betsey S eybold (Pfizer), Mrna-lnp, 00:00:00 Serge Protein, Pf, 30mcg/0.3ml,IM Covid-19 Vaccine 2020-08-30 Completed Betsey S eybold (Pfizer), Mrna-lnp, 00:00:00 Serge Protein, Pf, 30mcg/0.3ml,IM Covid-19 Vaccine 2020-08-30 Completed Betsey S eybold (Pfizer), Mrna-lnp, 00:00:00 Serge Protein, Pf, 30mcg/0.3ml,IM Covid-19 Vaccine 2020-08-30 Completed Betsey S eybold (Pfizer), Mrna-lnp, 00:00:00 - Ext ernal Serge Protein, Pf, 30mcg/0.3ml,IM COVID-19 VACCINE 2020-08-30 Completed Betsey S eybold PFIZER 12+ (Qiu 00:00:00 - Food And Beverage Director al cap) Covid-19 Vaccine 2020-08-30 Completed Betsey S eybold (Pfizer), Mrna-lnp, 00:00:00 - Ext ernal Serge Protein, Pf, 30mcg/0.3ml,IM COVID-19 VACCINE 2020-08-30 Completed Betsey S eybold PFIZER + (Qiu 00:00:00 - Food And Beverage Director al cap) Covid-19 Vaccine 2020-08-30 Completed Betsey S eybold (Pfizer), Mrna-lnp, 00:00:00 - Ext ernal Serge Protein, Pf, 30mcg/0.3ml,IM COVID-19 VACCINE 2020-08-30 Completed Betsey S eybold PFIZER 12+ (Qiu 00:00:00 - Food And Beverage Director al cap) Covid-19 Vaccine 2020-08-30 Completed Betsey S eybold ([employer]), Mrna-lnp, 00:00:00 - Ext ernal Serge Protein, Pf, 30mcg/0.3ml,IM COVID-19 VACCINE 2020-08-30 Completed Betsey S eybold PFIZER 12+ (Qiu 00:00:00 - Food And Beverage Director al cap) Covid-19 Vaccine 2020-08-30 Completed Betsey S eybold (Pfizer), Mrna-lnp, 00:00:00 Serge Protein, Pf, 30mcg/0.3ml,IM Covid-19 Vaccine 2020-08-30 Completed Betsey S eybold (Pfizer), Mrna-lnp, 00:00:00 - Ext ernal Serge Protein, Pf, 30mcg/0.3ml,IM COVID-19 VACCINE 2020-08-30 Completed Betsey S eybold PFIZER 12+ (Qiu 00:00:00 - Food And Beverage Director al cap) Covid-19 Vaccine 2020-08-30 Completed Betsey S eybold (Pfizer), Mrna-lnp, 00:00:00 Serge Protein, Pf, 30mcg/0.3ml,IM Pfizer COVID-19 Pfizer COVID-19 2020-08-30 Completed Vaccine Vaccine 00:00:00 Shingles IM 2020-06-21 Completed Betsey Seybol d (Shingrix) 00:00:00 Shingles IM 2020-06-21 Completed Betsey Seybol d (Shingrix) 00:00:00 Shingles IM 2020-06-21 Completed Betsey Seybol d (Shingrix) 00:00:00 Shingles IM 2020-06-21 Completed Betsey Seybol d (Shingrix) 00:00:00 Shingles IM 2020-06-21 Completed Btesey Seybol d (Shingrix) 00:00:00 - External Shingles IM 2020-06-21 Completed Betsey Seybol d (Shingrix) 00:00:00 - External Shingles IM 2020-06-21 Completed Betsey Seybol d (Shingrix) 00:00:00 - External Shingles IM 2020-06-21 Completed Betsey Seybol d (Shingrix) 00:00:00 - External Shingles IM 2020-06-21 Completed Betsey Seybol d (Shingrix) 00:00:00 - External Shingles IM 2020-06-21 Completed Betsey Seybol d (Shingrix) 00:00:00 Shingles IM 2020-04-02 Completed Betsey Seybol d (Shingrix) 00:00:00 Shingles IM 2020-04-02 Completed Betsey Seybol d (Shingrix) 00:00:00 Shingles IM 2020-04-02 Completed Betsey Seybol d (Shingrix) 00:00:00 Shingles IM 2020-04-02 Completed Betsey Seybol d (Shingrix) 00:00:00 Shingles IM 2020-04-02 Completed Betsey Seybol d (Shingrix) 00:00:00 - External Shingles IM 2020-04-02 Completed Betsey Seybol d (Shingrix) 00:00:00 - External Shingles IM 2020-04-02 Completed Betsey Seybol d (Shingrix) 00:00:00 - External Shingles IM 2020-04-02 Completed Betsey Seybol d (Shingrix) 00:00:00 - External Shingles IM 2020-04-02 Completed Betsey Seybol d (Shingrix) 00:00:00 Shingles IM 2020-04-02 Completed Betsey Seybol d (Shingrix) 00:00:00 - External Shingles IM 2020-04-02 Completed Betsey Seybol d (Shingrix) 00:00:00 Influenza Virus 2020-03-03 Completed Betsey Se ybold Vaccine, Quad, Egg 00:00:00 Free Influenza Virus 2020-03-03 Completed Betsey Se ybold Vaccine, No Preserv, 00:00:00 age 6 months and up Influenza Virus 2020-03-03 Completed Betsey Se ybold Vaccine, Quad, Egg 00:00:00 Free Influenza Virus 2020-03-03 Completed Betsey Se ybold Vaccine, No Preserv, 00:00:00 age 6 months and up Influenza Virus 2020-03-03 Completed Betsey Se ybold Vaccine, Quad, Egg 00:00:00 Free Influenza Virus 2020-03-03 Completed Betsey Se ybold Vaccine, No Preserv, 00:00:00 age 6 months and up Influenza Virus 2020-03-03 Completed Betsey Se ybold Vaccine, Quad, Egg 00:00:00 Free Influenza Virus 2020-03-03 Completed Betsey Se ybold Vaccine, No Preserv, 00:00:00 age 6 months and up Influenza Virus 2020-03-03 Completed Betsey Se ybold Vaccine, Quad, Egg 00:00:00 - Exte rnal Free Influenza Virus 2020-03-03 Completed Betsey Se ybold Vaccine, No Preserv, 00:00:00 - Ex ternal age 6 months and up Influenza Virus 2020-03-03 Completed Betsey Se ybold Vaccine, Quad, Egg 00:00:00 - Exte rnal Free Influenza Virus 2020-03-03 Completed Betsey Se ybold Vaccine, No Preserv, 00:00:00 - Ex ternal age 6 months and up Influenza Virus 2020-03-03 Completed Betsey Se ybold Vaccine, Quad, Egg 00:00:00 - Exte rnal Free Influenza Virus 2020-03-03 Completed Betsey Se ybold Vaccine, No Preserv, 00:00:00 - Ex ternal age 6 months and up Influenza Virus 2020-03-03 Completed Betsey Se ybold Vaccine, Quad, Egg 00:00:00 Free Influenza Virus 2020-03-03 Completed Betsey Se ybold Vaccine, Quad, Egg 00:00:00 - Exte rnal Free Influenza Virus 2020-03-03 Completed Betsey Se ybold Vaccine, No Preserv, 00:00:00 - Ex ternal age 6 months and up Influenza Virus 2020-03-03 Completed Betsey Se ybold Vaccine, No Preserv, 00:00:00 age 6 months and up Influenza Virus 2020-03-03 Completed Betsey Se ybold Vaccine, Quad, Egg 00:00:00 - Exte rnal Free Influenza Virus 2020-03-03 Completed Betsey Se ybold Vaccine, No Preserv, 00:00:00 - Ex ternal age 6 months and up Influenza Virus 2020-03-03 Completed Betsey Se ybold Vaccine, Quad, Egg 00:00:00 Free Influenza Virus 2020-03-03 Completed Betsey Se ybold Vaccine, No Preserv, 00:00:00 age 6 months and up Influenza Virus 2019-04-01 Completed Betsey Se ybold Vaccine, age 6 00:00:00 months and up Influenza Virus 2019-04-01 Completed Betsey Se ybold Vaccine, age 6 00:00:00 months and up Influenza Virus 2019-04-01 Completed Betsey Se ybold Vaccine, age 6 00:00:00 months and up Influenza Virus 2019-04-01 Completed Betsey Se ybold Vaccine, age 6 00:00:00 months and up Influenza Virus 2019-04-01 Completed Betsey Se ybold Vaccine, age 6 00:00:00 - External months and up Influenza Virus 2019-04-01 Completed Betsey Se ybold Vaccine, age 6 00:00:00 - External months and up Influenza Virus 2019-04-01 Completed Betsey Se ybold Vaccine, age 6 00:00:00 - External months and up Influenza Virus 2019-04-01 Completed Betsey Se ybold Vaccine, age 6 00:00:00 months and up Influenza Virus 2019-04-01 Completed Betsey Se ybold Vaccine, age 6 00:00:00 - External months and up Influenza Virus 2019-04-01 Completed Betsey Se ybold Vaccine, age 6 00:00:00 - External months and up Influenza Virus 2019-04-01 Completed Betsey Se ybold Vaccine, age 6 00:00:00 months and up Tdap- (Boostrix, 2018-04-15 Completed Betsey S eybold Adacel) 00:00:00 Influenza Virus 2018-04-15 Completed Betsey Se ybold Vaccine, No Preserv, 00:00:00 age 6 months and up Tdap- (Boostrix, 2018-04-15 Completed Betsey S eybold Adacel) 00:00:00 Influenza Virus 2018-04-15 Completed Betsey Se ybold Vaccine, No Preserv, 00:00:00 age 6 months and up Tdap- (Boostrix, 2018-04-15 Completed Betsey S eybold Adacel) 00:00:00 Influenza Virus 2018-04-15 Completed Betsey Se ybold Vaccine, No Preserv, 00:00:00 age 6 months and up Tdap- (Boostrix, 2018-04-15 Completed Betsey S eybold Adacel) 00:00:00 Influenza Virus 2018-04-15 Completed Betsey Se ybold Vaccine, No Preserv, 00:00:00 age 6 months and up Tdap- (Boostrix, 2018-04-15 Completed Betsey S eybold Adacel) 00:00:00 - External Influenza Virus 2018-04-15 Completed Betsey Se ybold Vaccine, No Preserv, 00:00:00 - Ex ternal age 6 months and up Tdap- (Boostrix, 2018-04-15 Completed Betsey S eybold Adacel) 00:00:00 - External Influenza Virus 2018-04-15 Completed Betsey Se ybold Vaccine, No Preserv, 00:00:00 - Ex ternal age 6 months and up Tdap- (Boostrix, 2018-04-15 Completed Betsey S eybold Adacel) 00:00:00 - External Influenza Virus 2018-04-15 Completed Betsey Se ybold Vaccine, No Preserv, 00:00:00 - Ex ternal age 6 months and up Tdap- (Boostrix, 2018-04-15 Completed Betsey S eybold Adacel) 00:00:00 Influenza Virus 2018-04-15 Completed Betsey Se ybold Vaccine, No Preserv, 00:00:00 age 6 months and up Tdap- (Boostrix, 2018-04-15 Completed Betsey Stephany meghan Adacel) 00:00:00 - External Influenza Virus 2018-04-15 Completed Betsey shoemaker Vaccine, No Preserv, 00:00:00 - Ex ternal age 6 months and up Tdap- (Boostrix, 2018-04-15 Completed Betseysami jaydanielle Adacel) 00:00:00 - External Influenza Virus 2018-04-15 Completed Betsey Se sathishmikala Vaccine, No Preserv, 00:00:00 - Ex ternal age 6 months and up Tdap- (Boostrix, 2018-04-15 Completed Betseysami jaydanielle Adacel) 00:00:00 Influenza Virus 2018-04-15 Completed Betsey shoemaker Vaccine, No Preserv, 00:00:00 age 6 months and up Vital Signs Vital Name Observation Time Observation Value Comments Source Heart rate 2022-05-17 21:05:00 87 /min Betsey christianson - External Systolic blood 2022-05-17 20:14:00 98 mm[Hg] Betsey Lima - pressure External Diastolic blood 2022-05-17 20:14:00 56 mm[Hg] Quintin chowdary Seybmikala - pressure External Body temperature 2022-05-17 20:14:00 35.39 Ann-Marie Vianey Lima - External Respiratory rate 2022-05-17 20:14:00 16 /min Vianey Lima - External Body height 2022-05-17 20:14:00 172.7 cm Betsey christianson - External Body weight 2022-05-17 20:14:00 107.049 kg Betsey Stephany meghan - External BMI 2022-05-17 20:14:00 35.88 kg/m2 Betsey christianson - External Oxygen saturation in 2022-05-17 20:14:00 97 /min Betsey Lima - Arterial blood by External Pulse oximetry Systolic blood 2022-05-02 15:21:00 119 mm[Hg] Betsey Lima - pressure External Diastolic blood 2022-05-02 15:21:00 65 mm[Hg] Quintin chowdary Seybold - pressure External Heart rate 2022-05-02 15:21:00 97 /min Betsey Hammond eybold - External Body temperature 2022-05-02 15:21:00 35.72 Ann-Marie Vianey ey Seybold - External Respiratory rate 2022-05-02 15:21:00 24 /min Vianey ey Seybold - External Body height 2022-05-02 15:21:00 172.7 cm Betsey Hammond eybold - External Body weight 2022-05-02 15:21:00 111.403 kg Betsey Hammond eybold - External BMI 2022-05-02 15:21:00 37.34 kg/m2 Betsey Hammond eybold - External Oxygen saturation in 2022-05-02 15:21:00 97 /min Betsey Seybold - Arterial blood by External Pulse oximetry Systolic blood 2022-04-14 17:53:00 112 mm[Hg] Betsey Seybold - pressure External Diastolic blood 2022-04-14 17:53:00 56 mm[Hg] Kelse y Seybold - pressure External Heart rate 2022-04-14 17:53:00 94 /min Betsey S eybold - External Body temperature 2022-04-14 17:53:00 36.44 Ann-Marie Vianey ey Seybold - External Respiratory rate 2022-04-14 17:53:00 20 /min Vianey ey Seybold - External Body weight 2022-04-14 17:53:00 115.032 kg Betsey Hammond eybold - External BMI 2022-04-14 17:53:00 38.56 kg/m2 Betsey Hammond eybold - External Oxygen saturation in 2022-04-14 17:53:00 97 /min Betsey Seybold - Arterial blood by External Pulse oximetry Systolic blood 2022-03-14 15:55:00 102 mm[Hg] Betsey Seybold - pressure External Diastolic blood 2022-03-14 15:55:00 56 mm[Hg] Kelse y Seybold - pressure External Heart rate 2022-03-14 15:55:00 90 /min Betsey S eybold - External Body temperature 2022-03-14 15:55:00 35.89 Ann-Marie Vianey ey Seybold - External Respiratory rate 2022-03-14 15:55:00 16 /min Vianey ey Seybold - External Body height 2022-03-14 15:55:00 172.7 cm Betsey S eybold - External Body weight 2022-03-14 15:55:00 117.935 kg Betsey S eybold - External BMI 2022-03-14 15:55:00 39.53 kg/m2 Betsey S eybold - External Systolic blood 2021-09-29 18:49:00 116 mm[Hg] Betsey Seybold pressure Diastolic blood 2021-09-29 18:49:00 62 mm[Hg] Kelse y Seybold pressure Heart rate 2021-09-29 18:49:00 88 /min Betsey S eybold Body temperature 2021-09-29 18:49:00 36.5 Ann-Marie Vianey ey Seybold Respiratory rate 2021-09-29 18:49:00 18 /min Vianey ey Seybold Body height 2021-09-29 18:49:00 172.7 cm Betsey S eybold Body weight 2021-09-29 18:49:00 117.028 kg Betsey S eybold BMI 2021-09-29 18:49:00 39.23 kg/m2 Betsey S eybold Oxygen saturation in 2021-09-29 18:49:00 97 /min Betsey Seybold Arterial blood by Pulse oximetry Body height 2021-09-28 19:40:00 172.7 cm Betsey S eybold Body weight 2021-09-28 19:40:00 116.847 kg Betsey S eybold BMI 2021-09-28 19:40:00 39.17 kg/m2 Betsey S eybold Systolic blood 2021-05-31 13:53:00 126 mm[Hg] Betsey Seybold pressure Diastolic blood 2021-05-31 13:53:00 70 mm[Hg] Kelse y Seybold pressure Heart rate 2021-05-31 13:53:00 85 /min Betsey S eybold Body temperature 2021-05-31 13:53:00 36.78 Ann-Marie Vianey ey Seybold Respiratory rate 2021-05-31 13:53:00 18 /min Vianey ey Seybold Body height 2021-05-31 13:53:00 172.7 cm Betsey jaybold Body weight 2021-05-31 13:53:00 116.121 kg Betsey Hammond eybold BMI 2021-05-31 13:53:00 38.92 kg/m2 Betsey Hammond eybold Oxygen saturation in 2021-05-31 13:53:00 96 /min Betsey Doranybmikala Arterial blood by Pulse oximetry Systolic blood 2021-05-16 13:50:00 132 mm[Hg] Betsey Seybold pressure Diastolic blood 2021-05-16 13:50:00 80 mm[Hg] Kelse y Seybold pressure Heart rate 2021-05-16 13:50:00 102 /min Betsey Hammond eybold Body temperature 2021-05-16 13:50:00 36.5 Ann-Marie Vianey ey Seybold Respiratory rate 2021-05-16 13:50:00 18 /min Vianey misty Seybold Body height 2021-05-16 13:50:00 172.7 cm Betsey jayboeun Body weight 2021-05-16 13:50:00 114.306 kg Betsey jaybold BMI 2021-05-16 13:50:00 38.32 kg/m2 Betsey jaybold Oxygen saturation in 2021-05-16 13:50:00 97 /min Betsey Doranybmikala Arterial blood by Pulse oximetry Procedures This patient has no known procedures. Encounters Start End Encounter Admission Attending Care Care Encounter Source Date/Time Date/Time Type Type Clinicians Facility Department ID 2022-11-02 2022-11-02 Outpatient RADHA CABALLERO [id number] [facility]sey 08:30:00 08:30:00 H, ABIGAIL Seybol d 2022-06-02 2022-06-02 Outpatient BETSEY BRENNER [id number] [facility] 13:00:00 13:00:00 JOSE LUIS Seybol d 2022-05-18 2022-05-18 Outpatient BETSEY CONN [id number] [facility] 00:00:00 00:00:00 SHARI Seybol d 2022-05-17 2022-05-17 Outpatient LAB90 BETSEY CABALLERO [id number] [facility] 15:15:00 15:15:00 Seybol d 2022-05-17 2022-05-17 Outpatient BETSEY CONN [id number] [facility] 14:30:00 14:30:00 SHARI Seybol d 2022-05-17 2022-05-17 Outpatient BETSEY BRENNER [id number] [facility] 00:00:00 00:00:00 JOSE LUIS Seybol d 2022-05-12 2022-05-12 Outpatient BETSEY CONN [id number] [facility] 00:00:00 00:00:00 SHARI Seybol d 2022-05-09 2022-05-09 Outpatient LAB53 BETSEY CABALLERO [id number] [facility] 09:00:00 09:00:00 Seybol d 2022-05-09 2022-05-09 Outpatient [facility] BETSEY CABALLERO [id number] [place] 08:30:00 08:30:00 H, ABIGAIL Seybol d 2022-05-02 2022-05-02 Outpatient BETSEY CONN [id number] [place] 09:30:00 09:30:00 SHARI Seybol d 2022-04-14 2022-04-14 Outpatient BETSEY CONN [id number] [place] 13:00:00 13:00:00 SHARI Seybol d 2022-03-27 2022-03-27 Outpatient BETSEY CONN [id number] [place] 00:00:00 00:00:00 SHARI Seybol d 2022-03-14 2022-03-14 Outpatient BETSEY CONN [id number] [place] 11:00:00 11:00:00 SHARI Seybol d 2022-03-02 2022-03-02 Outpatient TRED08 BETSEY CABALLERO [id number] [place] 16:45:00 16:45:00 Seybol d 2022-03-02 2022-03-02 Outpatient BETSEY DEMPSEY [id number] [place] 10:50:00 10:50:00 JOVITA Seybol d 2022-02-23 2022-02-23 Outpatient BETSEY CONN [id number] [place] 00:00:00 00:00:00 SHARI Seybol d 2022-02-17 2022-02-17 Outpatient LAB90 BETSEY CABALLERO [id number] [place] 10:45:00 10:45:00 Seybol d 2022-02-17 2022-02-17 Office Darien Conn [id number] [place] 10:00:00 10:30:00 Visit Shari Rees [id number] Se ybold [id number] 2022-02-17 2022-02-17 Outpatient RUBY BETSEY CABALLERO [id number] [place] 08:00:00 08:00:00 SHARI Seybol d 2022-02-10 2022-02-10 Office Dairen Conn 1.2.840.114 [id number] [place] 08:00:00 08:30:00 Visit Shari Rees [id number] Se ybold [id number] 2022-02-06 2022-02-06 Outpatient WYATTAdeel BETSEY CABALLERO [id number] [place] 00:00:00 00:00:00 SHARI Seybol d 2022-02-01 2022-02-01 Outpatient BETSEY CABALLERO [id number] [place] 10:00:00 10:00:00 Seybol d 2022-02-01 2022-02-01 Outpatient WYATTAdeel BETSEY CABALLERO [id number] [place] 00:00:00 00:00:00 SHARI Seybol d 2022-01-31 2022-01-31 Outpatient BETSEY PANDYA [id number] [place] 15:45:00 15:45:00 BENAFSHA Seybo ld 2022-01-30 2022-01-30 Office Darien Conn 1.2.840.114 [id number] [place] 10:00:00 10:30:00 Visit Shari Rees [id number] Se ybold [id number] 2022-01-30 2022-01-30 Outpatient BETSEY CONN [id number] [place] 00:00:00 00:00:00 SHARI Seybol d 2022-01-27 2022-01-27 Outpatient FERRO BETSEY CABALLERO [id number] [place] 00:00:00 00:00:00 RACHEL Seyb old 2022-01-25 2022-01-25 Outpatient BETSEY CABALLERO [id number] [place] 10:00:00 10:00:00 Seybol d 2022-01-24 2022-01-24 Outpatient LAB53 BETSEY CABALLERO [id number] [place] 15:30:00 15:30:00 Seybol d 2022-01-24 2022-01-24 Office Ferro, CLEAR 1.2.840.114 [id number] [place] 15:00:00 15:15:00 Visit Rachel VERA 350.1.13.13 Seybold [id number] 2022-01-24 2022-01-24 Office Chitsazzade CLEAR 1.2.840.114 10 [id number] [place] 08:00:00 08:15:00 Visit h, Abigail VERA [id number] Se ybold 1.2.7.2.686 [id number] 2021-12-27 2021-12-27 Outpatient POLI, BETSEY CABALLERO [id number] [place] 10:15:00 10:15:00 JESSICA Seybo ld 2021-11-09 2021-11-09 Office Chitsazzade CLEAR 1.2.840.114 [id number] [place] 11:30:00 12:00:00 Visit hAbigail 350.1.13.13 Se ybold 1.2.7.2.686 [id number] 2021-11-09 2021-11-09 Outpatient CHITSAZZADE BETSEY CABALLERO [id number] [place] 11:00:00 11:00:00 H, ABIGAIL Seybol d 2021-11-03 2021-11-03 Outpatient BETSEY HORTON [id number] [place] 14:40:00 14:40:00 MICHELLE Seybo ld 2021-10-24 2021-10-24 Outpatient [id number] BETSEY CABALLERO [id number] [place] 09:40:00 09:40:00 Seybol d 2021-10-24 2021-10-24 Office Radha CLEAR 1.2.840.114 [id number] [place] 09:00:00 09:30:00 Visit Abigail law 350.1.13.13 Se ybold 1.2.7.2.686 [id number] 2021-10-22 2021-10-22 Outpatient GCCOVIDV GCCOVIDV [id number] GCCOVID 00:00:00 00:00:00 V 2021-09-29 2021-09-29 Office Ferro, CLEAR 1.2.840.114 [id number] [place] 14:00:00 14:15:00 Visit Rachel VERA 350.1.13.13 Seybold 1.2.7.2.686 [id number] 2021-09-28 2021-09-28 Education Majeremiah, CLEAR 1.2.840.114 [id number] [place] 14:30:00 15:30:00 Destinibrandi VERA 350.1.13.13 Se ybold 1.2.7.2.686 [id number] 2021-09-04 2021-09-04 Outpatient BETSEY ARDON [id number] [place] 00:00:00 00:00:00 BALAGMARIA TERESAU Seybo ld 2021-08-30 2021-08-30 Outpatient BETSEY ARDON [id number] [place] 00:00:00 00:00:00 BALAGURU Seybo ld 2021-08-29 2021-08-29 Outpatient BETSEY FERRO [id number] [place] 00:00:00 00:00:00 RACHEL Seyb old 2021-08-26 2021-08-26 Outpatient BETSEY CABALLERO [id number] [place] 14:30:00 14:30:00 Seybol d 2021-08-26 2021-08-26 Outpatient BETSEY CABALLERO [id number] [place] 14:00:00 14:00:00 Seybol d 2021-08-26 2021-08-26 Outpatient BETSEY CABALLERO [id number] [place] 13:00:00 13:00:00 Seybol d 2021-07-01 2021-07-01 Outpatient BETSEY FERRO [id number] [place] 00:00:00 00:00:00 SHAHNAWAZ Seyb old 2021-06-15 2021-06-15 Outpatient DUGLAS, BETSEY CABALLERO [id number] [place] 00:00:00 00:00:00 BALAGURU Seybo ld 2021-06-15 2021-06-15 Outpatient BETSEY FERRO [id number] [place] 00:00:00 00:00:00 SHAHNAWAZ Seyb old 2021-06-07 2021-06-07 Outpatient BETSEY FERRO [id number] [place] 00:00:00 00:00:00 SHAHNAWAZ Seyb old 2021-06-04 2021-06-04 Outpatient BETSEY FERRO [id number] [place] 00:00:00 00:00:00 SHAHNAWAZ Seyb old 2021-05-31 2021-05-31 Outpatient TRED53 BETSEY CABALLERO [id number] [place] 10:00:00 10:00:00 Seybol d 2021-05-31 2021-05-31 Outpatient LAB53 BETSEY CABALLERO [id number] [place] 08:55:00 08:55:00 Seybol d 2021-05-31 2021-05-31 Office Duglas, CLEAR 1.2.840.114 [id number] [place] 08:00:00 08:30:00 Visit [facility] 350.1.13.13 S eybold [id number] [id number] 2021-05-16 2021-05-16 Outpatient LAB53 BETSEY CABALLERO [id number] [place] 08:30:00 08:30:00 Seybol d 2021-05-16 2021-05-16 Office Duglas, CLEAR 1.2.840.114 [id number] [place] 08:00:00 08:15:00 Visit [facility] 350.1.13.13 S eybold [id number] [id number] 2021-05-10 2021-05-10 Outpatient BETSEY FERRO [id number] [place] 00:00:00 00:00:00 SHAHSHILPA Doranyb old 2021-05-10 2021-05-10 Outpatient BETSEY FERRO [id number] [place] 00:00:00 00:00:00 SHAHNAMICHAELA Seyb old 2021-05-05 2021-05-05 Outpatient BETSEY FERRO [id number] [place] 00:00:00 00:00:00 SHAHNAWAZ Seyb old 2021-03-24 2021-03-24 Outpatient GCCOVIDV GCCOVIDV [id number] GCCOVID 00:00:00 00:00:00 V 2021-02-07 2021-02-07 Outpatient BETSEY CABALLERO [id number] [place] 14:30:00 14:30:00 Seybol d 2021-02-07 2021-02-07 Outpatient BETSEY CABALLERO [id number] [place] 14:00:00 14:00:00 Seybol d 2021-02-07 2021-02-07 Outpatient BETSEY FERRO [id number] [place] 00:00:00 00:00:00 SHAHSHILPA Seyb old 2021-02-01 2021-02-01 Outpatient BETSEY FERRO [id number] [place] 00:00:00 00:00:00 SHAHNAMICHAELA Seyb old 2021-02-01 2021-02-01 Outpatient BETSEY THOMAS [id number] [place] 00:00:00 00:00:00 BDC Seybol d 2021-01-28 2021-01-28 Outpatient BETSEY CABALLERO [id number] [place] 15:00:00 15:00:00 Seybol d 2021-01-19 2021-01-19 Outpatient BETSEY FERRO [id number] [place] 00:00:00 00:00:00 SHAHNAABHISHEKZ Seyb old 2021-01-13 2021-01-13 Outpatient BETSEY CABALLERO [id number] [place] 16:00:00 16:00:00 Seybol d 2020-09-20 2020-09-20 Outpatient GCCOVIDV GCCOVIDV [id number] GCCOVID 00:00:00 00:00:00 V 2020-08-30 2020-08-30 Outpatient GCCOVIDV GCCOVIDV [id number] GCCOVID 00:00:00 00:00:00 V Results This patient has no known results.
--- NOTE | 2022-05-18 14:44 | RAD REPORT ---
EXAM DESCRIPTION: CT - Abdomen Pelvis Wo Contrast - 05/18/2022 2:18 pm CLINICAL HISTORY: Abdominal pain. Abdominal pain, acute, nonlocalized COMPARISON: No comparisons TECHNIQUE: CT imaging of the abdomen and pelvis was performed without contrast. Solid organ, bowel a nd vascular assessment is limited due to lack of IV and oral contrast. All CT scans are performed using dose optimization technique as appropriate and may include automated exposure control or mA/KV adjustment according to patient size. FINDINGS: The lower lung lindsey are clear. 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 Tiny calcifications in the pancreas may represe nt chronic pancreatitis No bowel obstruction, free air, free fluid or abscess. The appendix is normal measuring up to 6 mm. The osseous structures are within normal limits. IMPRESSION: No acute intra-abdominal or pelvic findings. A limited non-contrast examination was performed as detailed.
[2022-05-18] MEDS ORDERED: NA CHLORIDE 0.9% 500 ML ONE (14:55)
[2022-05-18 15:29] LABS: Absolute Lymphocytes (CBC) 1.5 K/uL (0.7-4.9); Hematocrit 30.3 % (36.0-45.0); Lymphocytes % 20.1 % (15.3-44.8); MCV 96.9 fL (80-100); MPV 7.3 fL (7.6-11.3); RBC Red Blood Cell Count 3.12 M/uL (3.86-4.86)
[2022-05-18 15:31] LABS: Protime INR 1.95
[2022-05-18 15:38] LABS: SARS-CoV-2 Antigen Rapid Res Negative (Negative)
[2022-05-18 15:49] LABS: Albumin 4.3 g/dL (3.4-5.0); Bilirubin Direct 0.1 mg/dL (0-0.2); Bilirubin Total 0.4 mg/dL (0.2-1.0); Magnesium 2.1 mg/dL (1.8-2.4); Potassium 3.9 mmol/L (3.5-5.1); Protein, Total 8.9 g/dL (6.4-8.2); Troponin High Sensitivity 5.5 pg/mL (<58.9)
--- NOTE | 2022-05-18 16:30 | EDPHYS ---
Physician Documentation [facility] Name: Azalea Urban Age: 62 yrs Sex: Female : 1960 Arrival Date: 05/18/2022 Time: 13:33 Bed 4 Private MD: SAGAR Physician Hemal Byers HPI: 05/18 16:23 This 62 yrs old Female presents to ER via Ambulatory with complaints of florentin kidney function. 16:23 The patient presents with GI BLEEDING. The patient presents with urinary symptoms, florentin frequency, hematuria. Historical: - Allergies: 13:53 Codeine; iw 13:53 Pistacia Vera (Pistachio); iw - Home Meds: 13:53 Eliquis 5 mg oral tab 2 times per day [Active]; atorvastatin 10 mg oral tab 1 tab once iw daily [Active]; furosemide 40 mg Oral tab 1 tab 2 times per day [Active]; lisinopril 40 mg Oral tab 1 tab once daily [Active]; montelukast 10 mg oral tab 1 tab once daily [Active]; pantoprazole 20 mg oral TbEC 1 tab once daily [Active]; Ozempic 1 mg/dose (4 mg/3 mL) subcutaneous pnij [Active]; Vitamin D Oral daily [Active]; - PMHx: 13:53 DVT; Diabetes mellitus; Hypertensive disorder; iw - PSHx: 13:53 None; iw - Immunization history:: Client reports receiving the 2nd dose of the Covid vaccine. - Social history:: Smoking status: Patient/guardian denies using tobacco, the patient reports quitting approximately 12 years ago. - Family history:: not pertinent. ROS: 16:23 Constitutional: Negative for fever, chills, and weight loss, Eyes: Negative for injury, florentin pain, redness, and discharge, ENT: Negative for injury, pain, and discharge, Neck: Negative for injury, pain, and swelling, Cardiovascular: Negative for chest pain, palpitations, and edema, Respiratory: Negative for shortness of breath, cough, wheezing, and pleuritic chest pain, Back: Negative for injury and pain, : Negative for injury, bleeding, discharge, and swelling, MS/Extremity: Negative for injury and deformity, Skin: Negative for injury, rash, and discoloration, Neuro: Negative for headache, weakness, numbness, tingling, and seizure. 16:23 Abdomen/GI: Positive for rectal bleeding. Exam: 16:23 Constitutional: This is a well developed, well nourished patient who is awake, alert, florentin and in no acute distress. Head/Face: Normocephalic, atraumatic. Eyes: Pupils equal round and reactive to light, extra-ocular motions intact. Lids and lashes normal. Conjunctiva and sclera are non-icteric and not injected. Cornea within normal limits. Periorbital areas with no swelling, redness, or edema. ENT: Nares patent. No nasal discharge, no septal abnormalities noted. Tympanic membranes are normal and external auditory canals are clear. Oropharynx with no redness, swelling, or masses, exudates, or evidence of obstruction, uvula midline. Mucous membranes moist. Neck: Trachea midline, no thyromegaly or masses palpated, and no cervical lymphadenopathy. Supple, full range of motion without nuchal rigidity, or vertebral point tenderness. No Meningismus. Chest/axilla: Normal chest wall appearance and motion. Nontender with no deformity. No lesions are appreciated. Cardiovascular: Regular rate and rhythm with a normal S1 and S2. No gallops, murmurs, or rubs. Normal PMI, no JVD. No pulse deficits. Respiratory: Lungs have equal breath sounds bilaterally, clear to auscultation and percussion. No rales, rhonchi or wheezes noted. No increased work of breathing, no retractions or nasal flaring. Abdomen/GI: Soft, non-tender, with normal bowel sounds. No distension or tympany. No guarding or rebound. No evidence of tenderness throughout. Back: No spinal tenderness. No costovertebral tenderness. Full range of motion. Skin: Warm, dry with normal turgor. Normal color with no rashes, no lesions, and no evidence of cellulitis. MS/ Extremity: Pulses equal, no cyanosis. Neurovascular intact. Full, normal range of motion. Neuro: Awake and alert, GCS 15, oriented to person, place, time, and situation. Cranial nerves II-XII grossly intact. Motor strength 5/5 in all extremities. Sensory grossly intact. Cerebellar exam normal. Normal gait. Psych: Awake, alert, with orientation to person, place and time. Behavior, mood, and affect are within normal limits. 16:23 Abdomen/GI: Inspection: abdomen appears normal, Bowel sounds: normal, Palpation: abdomen is soft and non-tender, Rectal exam: Stool: guaiac positive, hemorrhoid(s), are not appreciated, mass, is not appreciated, swelling, is not appreciated, tenderness, is not appreciated, fecal impaction, is not appreciated, the exam is chaperoned by a family member, Liver: no appreciated palpable abnormalities, Hernia: not appreciated. Vital Signs: 13:52 BP 115 / 75; Pulse 108; Resp 16; Temp 97.9; Pulse Ox 99% on R/A; Weight 107.05 kg; iw Height 5 ft. 8 in. (172.72 cm); 15:27 BP 99 / 64; Pulse 83; Resp 15; Pulse Ox 97% ; Pain 0/10; jl7 16:00 BP 99 / 64; Pulse 88; Resp 15; Pulse Ox 97% ; bp 17:00 BP 104 / 48; Pulse 88; Resp 13; Pulse Ox 99% ; bp 18:00 BP 112 / 41; Pulse 87; Resp 20; Pulse Ox 100% ; bp 20:19 BP 113 / 76; Pulse 72; Resp 16; Pulse Ox 100% on R/A; kd3 13:52 Body Mass Index 35.88 (107.05 kg, 172.72 cm) iw MDM: 14:10 Patient medically screened. florentin 16:23 Differential diagnosis: diverticulitis, urinary tract infection, diverticulitis, florentin non-specific abd pain, pancreatitis. Data reviewed: vital signs, nurses notes, lab test result(s), EKG, radiologic studies. Data interpreted: patient monitor: rate is 83 beats/min, rhythm is regular, Pulse oximetry: on room air is 97 %. Test interpretation: by ED physician or midlevel provider: ECG, plain radiologic studies. Counseling: I had a detailed discussion with the patient and/or guardian regarding: the historical points, exam findings, and any diagnostic results supporting the discharge/admit diagnosis, lab results, radiology results, the need for further work-up and treatment in the hospital. 19:23 Physician consultation: Jean-Pierre Hess MD was called at 19:23, was contacted at 19:24, ms3 regarding consult, patient's condition, need to evaluate the patient as soon as possible, in the emergency department to see patient at 19:23. 05/18 13:54 Order name: Basic Metabolic Panel; Complete Time: 16:19 [facility] 05/18 13:54 Order name: CBC with Diff; Complete Time: 16:19 [facility] 05/18 13:54 Order name: LFT's; Complete Time: 16:19 [facility] 05/18 13:54 Order name: Magnesium; Complete Time: 16:19 [facility] 05/18 13:54 Order name: NT PRO-BNP; Complete Time: 16:19 [facility] 05/18 13:54 Order name: PT-INR; Complete Time: 16:19 [facility] 05/18 13:54 Order name: Troponin HS; Complete Time: 16:19 [facility] 05/18 13:54 Order name: Lipase; Complete Time: 16:19 [facility] 05/18 13:54 Order name: Urine Culture [facility] 05/18 13:54 Order name: Type And Screen; Complete Time: 16:36 [facility] 05/18 13:54 Order name: Lactate w/ 2H reflex if indic.; Complete Time: 16:19 [facility] 05/18 13:54 Order name: SARS RAPID; Complete Time: 16:19 [facility] 05/18 17:28 Order name: Urine Dipstick-Ancillary; Complete Time: 17:36 [facility] 05/18 18:42 Order name: Urinalysis [facility]TX 05/18 18:42 Order name: CBC with Automated Diff EDMS 05/18 18:42 Order name: CBC with Automated Diff; Complete Time: 22:40 [facility]TX 05/18 18:42 Order name: CBC with Automated Diff EDMS 05/18 18:42 Order name: Comprehensive Metabolic Panel EDMS 05/18 18:42 Order name: Comprehensive Metabolic Panel EDMS 05/18 18:42 Order name: Creatine Phosphokinase EDMS 05/18 18:42 Order name: Creatine Phosphokinase; Complete Time: 22:40 EDMS 05/18 18:42 Order name: Creatine Phosphokinase EDMS 05/18 18:42 Order name: Lipid Profile EDMS 05/18 18:42 Order name: Lipid Profile EDMS 05/18 18:42 Order name: Magnesium EDMS 05/18 18:42 Order name: Magnesium EDMS 05/18 18:42 Order name: Phosphorus EDMS 05/18 18:42 Order name: Phosphorus EDMS 05/18 18:42 Order name: Protime (+INR) EDMS 05/18 18:42 Order name: Protime (+INR) [facility] 05/18 13:54 Order name: XRAY Chest (1 view); Complete Time: 17:36 [facility] 05/18 13:54 Order name: EKG; Complete Time: 13:54 [facility] 05/18 13:54 Order name: Cardiac monitoring; Complete Time: 15:25 [facility] 05/18 13:54 Order name: EKG - Nurse/Tech; Complete Time: 15:25 [facility] 05/18 13:54 Order name: IV Saline Lock; Complete Time: 15:25 [facility] 05/18 13:54 Order name: Labs collected and sent; Complete Time: 15:25 [facility] 05/18 13:54 Order name: O2 Per Protocol; Complete Time: 15:25 [facility] 05/18 13:54 Order name: O2 Sat Monitoring; Complete Time: 15:25 [facility] 05/18 13:54 Order name: Urine Dipstick-Ancillary (obtain specimen); Complete Time: 17:39 [facility] 05/18 13:54 Order name: CT Abd/Pelvis - Without Contrast; Complete Time: 16:19 [facility] 05/18 16:23 Order name: Misc. Order: GET UA; Complete Time: 17:17 [facility] 05/18 18:42 Order name: CONS Physician Consult [facility] 05/18 18:42 Order name: CONS Physician Consult [facility] 05/18 18:42 Order name: NPO [facility] 05/18 18:42 Order name: PTT, Activated Partial Thromb [facility] 05/18 18:42 Order name: PTT, Activated Partial Thromb [facility] Administered Medications: 15:25 Drug: NS 0.9% 500 ml Route: IV; Rate: bolus; Site: left antecubital; jl7 17:30 Drug: Rocephin (cefTRIAXone) 1 grams Route: IV; Rate: per protocol; Site: left bp antecubital; Disposition Summary: 05/18/22 16:30 Hospitalization Ordered Hospitalization Status: Observation florentin Provider: Sharmin Ferro cha Location: Telemetry/MedSurg (observation) florentin Condition: Fair florentin Problem: new florentin Symptoms: have improved florentin Bed/Room Type: Standard florentin Room Assignment: 430(05/18/22 19:34) dw Diagnosis - Hematuria, unspecified florentin - Encounter for screening for lower gastrointestinal disorder florentin - MCFP (current) use of anticoagulants florentin - Anemia, unspecified florentin - Unspecified kidney failure florentin Forms: - Medication Reconciliation Form florentin - SBAR form florentin Signatures: Dispatcher [employer] Shayna Gill RN RN dw Anderson, Corey, MD MD cha Waters, Shelly, ICE CREAM VENDOR-C ICE CREAM VENDOR-Csnw Lissette Oropeza RN RN Hemal Jackson PA PA cp Leal, Jahala, RN RN jl7 Bakari Matthews RN RN bp Sims, Marcus, DO DO ms3 Corrections: (The following items were deleted from the chart) 19:34 16:30 florentin george
--- NOTE | 2022-05-18 16:30 | ER ---
Nurse's Notes [facility] Name: Azalea Urban Age: 62 yrs Sex: Female : 1960 Arrival Date: 05/18/2022 Time: 13:33 Bed 4 Private MD: Diagnosis: Hematuria, unspecified;Encounter for screening for lower gastrointestinal disorder;lobsterman (current) use of anticoagulants;Anemia, unspecified;Unspecified kidney failure Presentation: 05/18 13:52 Chief complaint: Patient states: has had blood drawn and urine done, has had a lot of iw blood in my urine and blood in stool, Shyann NUNEZ sent her over to be evaluated. Coronavirus screen: At this time, the client does not indicate any symptoms associated with coronavirus-19. Ebola Screen: Patient negative for fever greater than or equal to 101.5 degrees Fahrenheit, and additional compatible Ebola Virus Disease symptoms Patient denies exposure to infectious person. Patient denies travel to an Ebola-affected area in the 21 days before illness onset. No symptoms or risks identified at this time. Initial Sepsis Screen: Does the patient meet any 2 criteria? No. Patient's initial sepsis screen is negative. Does the patient have a suspected source of infection? No. Patient's initial sepsis screen is negative. Risk Assessment: Do you want to hurt yourself or someone else? Patient reports no desire to harm self or others. Onset of symptoms was May 18, 2022. 13:52 Method Of Arrival: Ambulatory iw 13:52 Acuity: GEMMA 3 iw Historical: - Allergies: 13:53 Codeine; iw 13:53 Pistacia Vera (Pistachio); iw - Home Meds: 13:53 Eliquis 5 mg oral tab 2 times per day [Active]; atorvastatin 10 mg oral tab 1 tab once iw daily [Active]; furosemide 40 mg Oral tab 1 tab 2 times per day [Active]; lisinopril 40 mg Oral tab 1 tab once daily [Active]; montelukast 10 mg oral tab 1 tab once daily [Active]; pantoprazole 20 mg oral TbEC 1 tab once daily [Active]; Ozempic 1 mg/dose (4 mg/3 mL) subcutaneous pnij [Active]; Vitamin D Oral daily [Active]; - PMHx: 13:53 DVT; Diabetes mellitus; Hypertensive disorder; iw - PSHx: 13:53 None; iw - Immunization history:: Client reports receiving the 2nd dose of the Covid vaccine. - Social history:: Smoking status: Patient/guardian denies using tobacco, the patient reports quitting approximately 12 years ago. - Family history:: not pertinent. Screenin:27 Abuse screen: Denies threats or abuse. Denies injuries from another. Nutritional jl7 screening: No deficits noted. Tuberculosis screening: No symptoms or risk factors identified. Fall Risk IV access (20 points). Total Montez Fall Scale indicates No Risk (0-24 pts). Assessment: 14:45 General: Appears in no apparent distress. uncomfortable, Behavior is calm, cooperative, jl7 appropriate for age. Pain: Denies pain. Neuro: Level of Consciousness is awake, alert, obeys commands, Oriented to person, place, time, situation. Cardiovascular: Patient's skin is warm and dry. Respiratory: Airway is patent Respiratory effort is even, unlabored, Respiratory pattern is regular, symmetrical. GI: Reports diarrhea, bloody stool, Patient currently denies abdominal pain. : Reports Blood in urine Denies burning with urination, pain with urination. Derm: Skin is pink, warm \T\ dry. 17:00 Reassessment: No changes from previously documented assessment. Patient and/or family bp updated on plan of care and expected duration. Pain level reassessed. ADMIT INITIATED. 19:00 Reassessment: No changes from previously documented assessment. ADMIT IN PROCESS. bp Vital Signs: 13:52 BP 115 / 75; Pulse 108; Resp 16; Temp 97.9; Pulse Ox 99% on R/A; Weight 107.05 kg; iw Height 5 ft. 8 in. (172.72 cm); 15:27 BP 99 / 64; Pulse 83; Resp 15; Pulse Ox 97% ; Pain 0/10; jl7 16:00 BP 99 / 64; Pulse 88; Resp 15; Pulse Ox 97% ; bp 17:00 BP 104 / 48; Pulse 88; Resp 13; Pulse Ox 99% ; bp 18:00 BP 112 / 41; Pulse 87; Resp 20; Pulse Ox 100% ; bp 20:19 BP 113 / 76; Pulse 72; Resp 16; Pulse Ox 100% on R/A; kd3 13:52 Body Mass Index 35.88 (107.05 kg, 172.72 cm) iw ED Course: 13:33 Patient arrived in ED. as 13:49 Hemal Byers MD is Attending Physician. florentin 13:53 Triage completed. iw 13:56 Arm band placed on. iw 14:20 CT Abd/Pelvis - Without Contrast In Process Unspecified. EDMS 14:43 Bakari Matthews, RN is Primary Nurse. bp 15:00 Patient has correct armband on for positive identification. Placed in gown. Bed in low jl7 position. Call light in reach. Side rails up X 1. Client placed on continuous cardiac and pulse oximetry monitoring. NIBP monitoring applied. Warm blanket given. 15:00 EKG done, by ED staff, reviewed by Hemal Byers MD. jl7 15:13 XRAY Chest (1 view) In Process Unspecified. EDMS 15:15 Initial lab(s) drawn, by ga, sent to lab. T\T\S collected, blood band applied to patient. jl7 Inserted saline lock: 20 gauge in left antecubital area, using aseptic technique. Blood collected. 15:28 Mala Freeman, RN is Primary Nurse. jl7 16:28 Sharmin Ferro MD is Hospitalizing Provider. florentin Administered Medications: 15:25 Drug: NS 0.9% 500 ml Route: IV; Rate: bolus; Site: left antecubital; jl7 17:30 Drug: Rocephin (cefTRIAXone) 1 grams Route: IV; Rate: per protocol; Site: left bp antecubital; Medication: 15:27 VIS not applicable for this client. jl7 Outcome: 16:30 Decision to Hospitalize by Provider. florentin 21:41 Patient left the ED. ds4 Signatures: Dispatcher [employer] EDNE Hemal Byers MD MD cha Martinez, Amelia as Williams, Irene, RN RN iw Christiano Hong ds4 Mala Freeman RN RN jl7 Bakari Matthews, RN Ivonne Covington RN RN kd3
--- NOTE | 2022-05-18 16:42 | RAD REPORT ---
EXAM DESCRIPTION: RAD - Chest Single View - 05/18/2022 3:11 pm CLINICAL HISTORY: COUGH Chest pain. COMPARISON: No comparisons FINDINGS: Portable technique limits examination quality. The lungs are grossly clear. The heart is mildly enlarged in size. No displaced fractures. IMPRESSION: No acute intrathoracic process suspected.
[2022-05-18] MEDS ORDERED: CEFTRIAXONE 1000 MG/VIAL ONE (17:16)
[2022-05-18] MEDS ORDERED: NA CHLORIDE 0.9% 100 ML IV ONE (17:16)
[2022-05-18 17:28] LABS: Urine Blood Negative (Negative); Urine Glucose Negative (Negative); Urine Protein Negative (Negative); Urine Specific Gravity 1.015 (1.005-1.030)
[2022-05-18] MEDS ORDERED: ACETAMINOPHEN 500 MG TAB PO PRN (18:12)
[2022-05-18] MEDS ORDERED: PROMETHAZINE 25 MG TABLET PO PRN (18:12)
[2022-05-18] MEDS: INSULIN -REGULAR HUMAN 50 UNIT/0.5 ML ML SQ SCH (21:00)
[2022-05-18 21:31] LABS: Absolute Lymphocytes (CBC) 1.7 K/uL (0.7-4.9); Hematocrit 27.1 % (36.0-45.0); MCV 97.8 fL (80-100); MPV 7.3 fL (7.6-11.3); RBC Red Blood Cell Count 2.78 M/uL (3.86-4.86)
--- NOTE | 2022-05-18 21:32 | P.HP ---
Certification for Inpatient With expected LOS: >2 Midnights Patient will require the following post-hospital care: None Practitioner: I am a practitioner with admitting privileges, knowledge of patient current condition, hospital course, and medical plan of care. Services: Services provided to patient in accordance with Admission requirements found in Title 42 Section 412.3 of the Code of Federal Regulations Patient History Date of Service: 05/18/22 Primary Care Provider: Betsey Lima Reason for admission: GI bleed, EM History of Present Illness: Mrs. Urban is a 62 yo female with a history of HTN, Edema, DVT on Eliquis. Over the past four to five days Mr. Urban has felt weak, tired, and near syncopal. She has had nausea, vomiting, and diarrhea of bright red blood. Pt was seen at [facility], told she had some hematuria and increase in her creatinine. She was sent to the ED and her rectal guaiac in the ED was said to be trace positive. Mrs. Urban apparently has a baseline creatinine of 1-2 and today was 2.46. Her BUN is 64. CT evaluation in the ED is negative for intra-abdominal or pelvic findings. Dr. Hess was consulted with admission as the pt's hgb is 10.2 and her hx is concerning for an acute GIB. Allergies No Known Allergies Allergy (Unverified 05/18/22 21:32) Home medications list reviewed: Yes (pt has taken Lasix x 1 yr. States she did have an ECHO with neg results) - Past Medical/Surgical History Has patient received pneumonia vaccine in the past: No Diabetic: No -: HTN, Edema to lower legs, Right lower ext DVT - Family History Family History: Reviewed- Non-Contributory - Social History Smoking Status: Former smoker Alcohol use: No CD- Drugs: No Caffeine use: Yes Place of Residence: Home (with Spouse) Review of Systems General: Unremarkable Eyes: Unremarkable ENT: Unremarkable Respiratory: Unremarkable Cardiovascular: Unremarkable Gastrointestinal: Nausea, Vomiting, Diarrhea, Hematochezia Genitourinary: Unremarkable Musculoskeletal: Unremarkable Integumentary: Unremarkable Neurological: Unremarkable Physical Examination - Vital Signs Temperature: 98 F Blood Pressure: 103/36 Pulse: 85 Respirations: 18 Pulse Ox (%): 92 - Physical Exam General: Alert, Oriented x3 HEENT: Atraumatic, Normocephalic Neck: Supple Respiratory: Clear to auscultation bilaterally Cardiovascular: No edema, Normal pulses, Regular rate/rhythm Capillary refill: <2 Seconds Gastrointestinal: Soft and benign, No tenderness Musculoskeletal: No clubbing Integumentary: No rashes, No breakdown Neurological: Normal speech, Normal tone External genitalia: Deferred Rectal: Deferred, Other (Guaiac in ED trace positive) - Studies Laboratory Data (last 24 hrs) 05/18/22 15:15: PT 21.5 H, INR 1.95 05/18/22 15:15: WBC 7.50, Hgb 10.2 L, Hct 30.3 L, Plt Count 268 05/18/22 15:15: Sodium 137, Potassium 3.9, BUN 64 H, Creatinine 2.46 H, Glucose 103, Magnesium 2.1, Total Bilirubin 0.4, AST 12 L, ALT 23, Alkaline Phosphatase 93, Lipase 216 Assessment and Plan - Problems (Diagnosis) (1) GIB (gastrointestinal bleeding) Current Visit: Yes Status: Acute Plan: Serial Hgb, consult Dr. Hess, NPO Qualifiers: GI bleed type/associated pathology: unspecified gastrointestinal hemorrhage type Qualified Code(s): K92.2 - Gastrointestinal hemorrhage, unspecified (2) EM (acute kidney injury) Current Visit: Yes Status: Acute Plan: Monitor I&O, slow IVF, hold lasix Plan to discharge in: 48 Hours - Advance Directives Does patient have a Living Will: No Does patient have a Durable POA for Healthcare: No - Code Status/Comfort Care Code Status Assessed: Yes (Would like Air Hammer Stripper consult) Time Spent Managing Pts Care (In Minutes): 70
[2022-05-18] MEDS: NA CHLORIDE 0.9% 1,000 ML IV SCH (21:58)
[2022-05-18 22:36] LABS: Absolute Lymphocytes (CBC) 1.5 K/uL (0.7-4.9); Lymphocytes % 21.8 % (15.3-44.8); MCV 97.7 fL (80-100); MPV 7.3 fL (7.6-11.3); RBC Red Blood Cell Count 2.87 M/uL (3.86-4.86)
[2022-05-18 23:36] VITALS: BMI 35.9
[2022-05-19 05:08] LABS: Protime INR 1.61
[2022-05-19 05:31] LABS: Albumin 3.4 g/dL (3.4-5.0); Bilirubin Total 0.3 mg/dL (0.2-1.0); Phosphorus 3.7 mg/dL (2.5-4.9); Potassium 4.4 mmol/L (3.5-5.1); Protein, Total 7.2 g/dL (6.4-8.2)
[2022-05-19 05:32] LABS: Magnesium 2.1 mg/dL (1.8-2.4)
[2022-05-19] MEDS: INSULIN -REGULAR HUMAN 50 UNIT/0.5 ML ML SQ SCH ×4 (07:30→21:00)
--- NOTE | 2022-05-19 07:51 | EKG ---
Test Date: 2022-05-18 Test Time: 15:01:17 Osteopathic Neurologist: MARSHALL MEASUREMENT RESULTS: Intervals: Rate: 87 IA: 178 QRSD: 84 QT: 352 QTc: 423 [place]: P: 71 IA: 178 QRS: 21 T: 32 INTERPRETIVE STATEMENTS: Normal sinus rhythm Low voltage QRS Nonspecific T wave abnormality Abnormal ECG No previous ECG available for comparison Electronically Signed On 05-19-22 07:49:00 CARROT BUNCHER by Ramesh Sweeney
[2022-05-19] MEDS: NA CHLORIDE 0.9% 1,000 ML IV SCH ×2 (08:25→16:58)
[2022-05-19 09:16] LABS: Absolute Lymphocytes (CBC) 1.3 K/uL (0.7-4.9); Hematocrit 27.6 % (36.0-45.0); Lymphocytes % 21.8 % (15.3-44.8); MCV 97.9 fL (80-100); MPV 7.2 fL (7.6-11.3); RBC Red Blood Cell Count 2.82 M/uL (3.86-4.86)
--- NOTE | 2022-05-19 11:12 | P.CNS ---
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 Pt reports being put on lasix due to edema related to the DVT but edema resolved early on and she remained on the moderate dose loop diuretic along with Lisinopril and at times her BP had trended lower. Prior to prsentation pt felt weak, tired, and near syncopal. She reports episodes of acute rectal bright red blood. She also reports possible gross hematuria episode developing since but reports latest urine collection has no longer been bloody. She denies abd pain. Allergies No Known Allergies Allergy (Unverified 05/18/22 21:32) Home Medications: Apixaban [Eliquis] 5 mg PO BID 05/18/22 Atorvastatin Calcium [Lipitor*] 10 mg PO DAILY 05/18/22 Cholecalciferol (Vitamin D3) [Vitamin D 5,000 IU Cap*] 2,500 unit PO DAILY 05/18/22 Furosemide [Lasix] 40 mg PO DAILY 05/18/22 Semaglutide [Ozempic] 1 mg SQ EVERY 7TH DAY 05/18/22 lisinopriL [Lisinopril] 40 mg PO DAILY 05/18/22 - Past Medical/Surgical History Diabetic: No -: HTN, Edema to lower legs, Right lower ext DVT -: hypertension -: hypercholesterolemia - Family History Mother Medical History: Heart disease, Hypertension, Stroke Sister Medical History: Stroke Father Medical History: Cancer, Blood disorders Notes: leukemia - Social History Alcohol use: No CD- Drugs: No Caffeine use: Yes Place of Residence: Home (with Spouse) Review of Systems General: Weakness, As per HPI Eyes: Unremarkable ENT: Unremarkable Respiratory: As per HPI Cardiovascular: Light Headedness, As per HPI Gastrointestinal: Other (BRBPR, no reported hx of diverticulosis, last colonos copy was > 10 years ago) Genitourinary: As per HPI Musculoskeletal: Unremarkable Integumentary: Unremarkable Neurological: Unremarkable Physical Examination Temp Pulse Resp BP Pulse Ox 97.4 F 88 16 105/50 L 95 05/19/22 08:00 05/19/22 08:00 05/19/22 08:00 05/19/22 08:00 05/19/22 08:00 General: Alert, In no apparent distress, Oriented x3 HEENT: Atraumatic, Normocephalic, PERRLA, Mucous membr. moist/pink Neck: Supple Respiratory: Clear to auscultation bilaterally, Normal air movement Cardiovascular: No edema, Normal pulses, Regular rate/rhythm, Normal S1 S2 Gastrointestinal: Soft and benign, Non-distended, No tenderness Musculoskeletal: No clubbing, No swelling, No contractures Integumentary: No rashes, No breakdown, No significant lesion Neurological: Normal speech, Normal strength at 5/5 x4 extr, Normal tone, Normal affect Laboratory Data (last 24 hrs) 05/18/22 15:15: PT 21.5 H, INR 1.95 05/18/22 15:15: WBC 7.50, Hgb 10.2 L, Hct 30.3 L, Plt Count 268 05/18/22 15:15: Sodium 137, Potassium 3.9, BUN 64 H, Creatinine 2.46 H, Glucose 103, Magnesium 2.1, Total Bilirubin 0.4, AST 12 L, ALT 23, Alkaline Phosphatase 93, Lipase 216 Conclusions/Impression: 1. Stage II EM 2. Pre-renal azotemia 3. Relative hypotension due to medications/drugs and hypovolemia 4. (Acute) Anemia 2nd to acute blood loss, other 5. Hx of Rt leg DVT -Pt with functional EM 2nd to pre-renal azotemia/vol depletion induced by chronic loop diuretic in part and compounded by relative hypotension and the use of a moderate dose ACEi in that setting. -Cr level downward trending, cont IVF hydration -Hold ACEi and Lasix, neither indicated currently and on discharge will likely cont to hold as well -UA did not show any dipstick blood. CT scan of the tract was not too remarkable -Anemia and GI bleed w/u per primary team/GI -No NSAIDs. Thank you, Van Dang MD, CLAUDY
[2022-05-19 15:39] LABS: Hematocrit 26.1 % (36.0-45.0)
--- NOTE | 2022-05-19 16:16 | RAD REPORT ---
EXAM DESCRIPTION: US - Extrem Venous W Compress Flex - 05/19/2022 4:06 pm CLINICAL HISTORY: DVT; Bilateral leg edema and swelling. COMPARISON: No comparisons TECHNIQUE: Real-time sonographic interrogation of the left and right lower extremity deep venous sys tems was performed. FINDINGS: Normal compressibility, flow augmentation, phasic flow and spontaneous flow is identified in both the left and right lower extremity deep venous systems. IMPRESSION: No sonographic evidence of left or right lower extremity deep venous thrombosis.
[2022-05-19] MEDS ORDERED: ATORVASTATIN 10 MG TAB PO SCH (21:00)
[2022-05-20] MEDS: NA CHLORIDE 0.9% 1,000 ML IV SCH (01:50)
[2022-05-20 06:17] LABS: Absolute Lymphocytes (CBC) 1.4 K/uL (0.7-4.9); Hematocrit 24.1 % (36.0-45.0); Lymphocytes % 28.2 % (15.3-44.8); MCV 97.6 fL (80-100); MPV 7.9 fL (7.6-11.3); RBC Red Blood Cell Count 2.47 M/uL (3.86-4.86)
[2022-05-20 06:24] LABS: Protime INR 1.37
[2022-05-20 07:09] LABS: Albumin 3.1 g/dL (3.4-5.0); Bilirubin Total 0.3 mg/dL (0.2-1.0); Folic Acid, (Folate) 3.5 ng/mL (3.1-17.5); Potassium 4.5 mmol/L (3.5-5.1); Protein, Total 6.5 g/dL (6.4-8.2)
[2022-05-20] MEDS: INSULIN -REGULAR HUMAN 50 UNIT/0.5 ML ML SQ SCH (07:30)
[2022-05-20] MEDS ORDERED: FUROSEMIDE 40 MG TABLET PO SCH (09:00)
[2022-05-20] MEDS ORDERED: LISINOPRIL 30 MG PO SCH (09:00)
[2022-05-20] MEDS ORDERED: VITAMIN D 1000 UNIT TAB PO SCH (09:00)
[2022-05-20 09:10] VITALS: BP 100/50; TEMP 97.2
[2022-05-20 09:50] VITALS: O2SAT 97
[2022-05-26] MEDS ORDERED: HOME MED 1 EA UNK (Semaglutide [Ozempic] 1 MG/0.75 ML Pen.Injctr) SQ SCH (09:00)
== END 2022-05-20 11:04 | disposition home or self-care (01) ==
LOC: ER 13:32 → ERHOLD 19:24 → 4TH 20:21
PROVIDERS: ADMIT Hospitalist; ATTEND Hospitalist
DX: K92.2 Gastrointestinal hemorrhage, unspecified (principal); N17.9 Acute kidney failure, unspecified; I10 Essential (primary) hypertension; I82.4Y1 Acute embolism and thrombosis of unspecified deep veins of right proximal lower extremity; E78.00 Pure hypercholesterolemia, unspecified; R79.89 Other specified abnormal findings of blood chemistry; D62 Acute posthemorrhagic anemia; I95.9 Hypotension, unspecified; E86.1 Hypovolemia; Z20.822 Contact with and (suspected) exposure to COVID-19; Z82.49 Family history of ischemic heart disease and other diseases of the circulatory system; Z79.01 Long term (current) use of anticoagulants
CPT/HCPCS: 93005; 85025 ×5; 80048; 36415 ×2; 86900; 83735 ×3; 86850; 82550 ×2; 84100; 85610 ×3; 85044; 80061; 86901; 82947 ×2; 80076; 83605; 85730 ×2; 85018; 85014; 81003; 84484; 82746; 82607; 83690; 83540; 80053 ×2; 83880; 74176; 71045; 93970; 94760 ×3; 96374; 99284; 87811; J7040; J7030 ×4; G0378